=== PATIENT | female | born 1985 | race Caucasian/White ===

== ENCOUNTER → 2016-05-24 | Outpatient (CLI) | payer OTHER ==
[2016-05-28 01:35] LABS: CHLAMYDIA TRACH RNA*** NOT DETECTED (NOT DETECTED); GC (NEIS GONORRHOEAE)RNA** NOT DETECTED (NOT DETECTED)
== END | disposition home or self-care (01) ==
LOC: C.LABSPEC 14:49
PROVIDERS: ATTEND Obstetrics & Gynecology
DX: Z34.81 Encounter for supervision of other normal pregnancy, first trimester (principal)

== ENCOUNTER → 2016-05-24 | Outpatient (CLI) | payer OTHER | END | disposition home or self-care (01) | LOC: C.PAPS 15:04 | PROVIDERS: ATTEND Obstetrics & Gynecology | DX: Z34.81 Encounter for supervision of other normal pregnancy, first trimester (principal) ==

== ENCOUNTER 2023-07-19 14:50 | Inpatient (IN) ==
[2023-07-19 15:46] LABS: Basophils # (auto) 0.04 K/uL (0.00-0.20); Basophils % (auto) 0.9 %; Eosinophils # (auto) 0.04 K/uL (0.00-0.50); Eosinophils % (auto) 0.9 %; Hematocrit (blood only) 31.6 % (37.0-47.0); Hemoglobin 10.5 g/dl (12.0-16.0); Immature Granulocytes # (auto) 0.03 K/uL (0.01-0.20); Immature Granulocytes % (auto) 0.6 %; Lymphocytes % (auto) 21.6 %; Mean Corpuscular Hemoglobin 28.8 pg (25.0-34.0); Mean Corpuscular Hgb Conc 33.2 g/dL (32.0-36.0); Mean Corpuscular Volume 86.8 fL (80.0-100.0); Mean Platelet Volume 10.7 fL (9.4-12.4); Monocytes # (auto) 0.47 K/uL (0.11-0.59); Monocytes % (auto) 10.1 %; Neutrophils # (auto) 3.06 K/uL (1.40-6.50); Neutrophils % (auto) 65.9 %; Platelet Count 156 K/uL (130-400); RDW Coefficient of Variation 12.9 % (11.5-14.5); RDW Standard Deviation 41.1 fL (36.4-46.3); Red Blood Count 3.64 M/uL (4.20-5.40); White Blood Count 4.64 K/ul (4.8-10.8)
[2023-07-19] MEDS: KETOROLAC TROMETHAMINE 15 MG/ML VIAL IV STA (15:53)
[2023-07-19] MEDS: SODIUM CHLORIDE 0.9% 500 ML IV STA (15:53)
[2023-07-19] MEDS: ONDANSETRON INJ 2 MG/ML 2 ML VIAL IV STA (15:53)
[2023-07-19] MEDS: SODIUM CHLORIDE 0.9% 1,000 ML IV SCH (15:55)
[2023-07-19 16:04] LABS: Albumin Globulin Ratio 1.2 (0.9-2); Albumin Level 3.3 gm/dl (3.4-5.0); BUN Creatinine Ratio 14.9 (10-20); Bilirubin,Total 0.8 mg/dl (0.2-1.0); Calcium 8.1 mg/dl (8.6-10.3); Creatinine Clr Calc Pharmacy 135.7 ml/min; Est GFR (African American) 128.3 ml/min; Est GFR (Non-African American) 110.7 ml/min; Globulin 2.8 gm/dl (2.5-4.0); Total Protein 6.1 gm/dl (6.0-8.3)
--- NOTE | 2023-07-19 16:16 | Emergency Department Note ---
History of Present Illness General Chief complaint: Kidney Stone Stated complaint: KIDNEY STONES, FEVER Time Seen by Provider: 07/19/23 15:47 History of Present Illness Maximum Pain Intensity: 8 Patient is a 38-year-old female with past medical history significant for anxiety and depression, history of gastric sleeve surgery in the past who presents to the emergency department for evaluation of right flank pain. Her symptoms started acutely about 5 days ago. She was on vacation in [place] at the time. She states that she was laying on the floor in the hotel with severe right flank pain, nausea and dry heaves. She has never had pain like this previously. She was seen at an emergency department locally and diagnosed with kidney stones. She reports that they were "multiple stones" on the right side, but they were reportedly 1 mm in size-she was told that she will be able to pass them on her own. She was discharged with Toradol, Flomax and Zofran. She states that the the following day she started running fevers. She states that her temperatures were getting as high as 102 F. She was taking Tylenol 1000 mg every 4 hours. She reports continued chills and sweats and dry heaves. Her flank pain has persisted. She was not provided a urine strainer, was not able to confirm whether she was passing any stones/debris. She is voiding but she does not feel like she is emptying her bladder completely. She reports that she just returned to [place] around 0500 this morning, and after trying to get in touch with her primary care provider and came to the ER at their recommendation. She does not have a prior history of kidney stones. Menses are irregular. Home Medications Medication Instructions Recorded Confirmed Type lorazepam 1 mg tablet (Ativan) 1 mg PO BID PRN Anxiety 12/01/22 07/19/23 History tamsulosin 0.4 mg capsule 0.4 mg PO DAILY 07/19/23 07/19/23 History venlafaxine 37.5 mg 37.5 mg PO DAILY 07/19/23 07/19/23 History capsule,extended release 24 hr Allergies Allergy/AdvReac Type Severity Reaction Status Date / Time No Known Allergies Allergy Verified 07/19/23 16:57 Past Med/Surg History Medical History Anxiety and depression Obesity Surgical History H/O left cataract extraction Hx of knee surgery History of gastric surgery Gastric Sleeve Social History Smoking Status: Never smoker Tobacco Type: E-cigarettes / Vaping Preferred Language: Vincentian Feels Safe at Home: Yes Review of Systems A total of 10 systems reviewed and were otherwise negative Physical Exam Vital Signs Vital Signs - 24 hr 07/19/23 14:56 07/19/23 16:06 Temperature 36.9 C Temperature Source Temporal Artery Scan Pulse Rate 111 H 88 Respiratory Rate 18 Respiratory Effort / Characteristics Non-Labored Spontaneous Respiratory Depth Normal Blood Pressure 119/79 Blood Pressure Mean 92 Blood Pressure Position Sitting Pulse Oximetry 97 Oxygen Delivery Method Room Air Sepsis Recent Fever Within 48 Hours No Sepsis New/Unexplained Change in Mental Status N/A Sepsis Action Taken by Nursing No Action Required CONSTITUTIONAL: Patient is an uncomfortable but otherwise well-appearing 38-year-old female who is awake and alert laying on the gurney in no acute distress. Afebrile, mildly tachycardic in triage. Other vital signs are otherwise stable. EYES: Pupils equal, round, reactive to light and accommodation. EOMs intact without nystagmus. Sclera are anicteric. ENT: Tympanic membranes intact, with normal landmarks. External canals are clear. Oral and nasopharynx are clear. Mucous membranes are moist, no lesions, tongue and gums appear normal. CARDIOVASCULAR: Regular rate and rhythm. Peripheral pulses easy to palpable. RESPIRATORY: Breath sounds equal and clear to auscultation. GI: Bowel sounds are present. Abdomen is soft, nontender, nondistended. No guarding or rebound. Positive right-sided CVA tenderness. MUSCULOSKELETAL: Full range of motion of extremities x 4 with good strength. No cyanosis, edema, joint tenderness or swelling. No deformity. INTEGUMENTARY: No lesions or rash, normal skin turgor. Course Course The patient was seen and assessed as above. External medical records were reviewed. She presents to the emergency department for evaluation of continued right flank pain, with now associated fevers. She was diagnosed with kidney stones [id number] about 5 days ago. Critical pathways were implemented from triage including CBC with differential, CMP, urinalysis, IV fluids, Toradol 15 mg and Zofran 4 mg IV. After my assessment of the patient, serum hCG was ordered in addition to more aggressive IV hydration. Blood cultures and lactic acid were obtained as well as a CT scan of the abdomen and pelvis with IV contrast. Diagnostics, as interpreted by me: Laboratory studies: Normal white count 4600. H&H indicate a mild anemia, hemoglobin 10.5, hematocrit 31.6 with normal indices. Potassium low, 3.0, otherwise no significant electrolyte imbalance. No LARISA. No transaminitis. Serum hCG is negative. Lactic acid is normal and not indicative of severe sepsis. Urine microscopy notes leukocyte esterase, greater than 50 WBCs and 4+ bacteria. Imaging studies: CT scan of the abdomen and pelvis with IV contrast notes a 4 mm nonobstructing right distal ureteral stone, right-sided pyelonephrosis and possible right renal abscess. All laboratory and diagnostic studies were discussed with Dr. Pitts attending physician. Patient was discussed with ED case management rn.. After review of the information above and other included data, I feel the patient requires admission for IV antibiotics and urology evaluation/intervention. I did review all of her diagnostic imaging studies and testing with her at length. I did recommend inpatient care and she was agreeable. The patient did report some increased pain and was amenable to something else for discomfort she was given morphine 4 mg IV. I did review the patient with urology on-call, Dr. Ferraro who did not feel that the patient required emergent surgical intervention at this time, but agreed with admission for IV antibiotics and likely surgical intervention tomorrow. Patient was given ceftriaxone 2 g IV after discussion with urology. [facility], for further inpatient care. Differential diagnosis: UTI, pyelonephritis, kidney stone, pyelitis, pyelonephritis, renal abscess, musculoskeletal pain, shingles, hernia, among others. Administered Medications Ondansetron HCl (Ondansetron Inj 2 Mg/Ml 2 Ml Vial) 4 mg IV Q4H PRN PRN Reason: Nausea Stop: 08/18/23 18:06 Last Admin: 07/19/23 19:14 Dose: 4 mg Documented By: SACHA Discontinued Medications Sodium Chloride (Nss) 500 mls @ 999 mls/hr IV .Q31M STA Stop: 07/19/23 15:30 Last Infusion: 07/19/23 18:52 Dose: Infused Documented By: Admin: 07/19/23 15:53 Dose: 999 mls/hr Documented By: SACHA Sodium Chloride (Nss) 1,000 mls @ 999 mls/hr IV .Q1H1M NAZARIO Stop: 07/19/23 17:51 Last Infusion: 07/19/23 18:52 Dose: Infused Documented By: Admin: 07/19/23 15:55 Dose: 999 mls/hr Documented By: Infusion: 07/19/23 15:55 Dose: Infused Documented By: Admin: 07/19/23 15:55 Dose: 999 mls/hr Documented By: SACHA Ceftriaxone Sodium (Rocephin) 2,000 mg in 50 mls @ 100 mls/hr IV NOW STA Stop: 07/19/23 18:17 Last Infusion: 07/19/23 18:52 Dose: Infused Documented By: Admin: 07/19/23 18:07 Dose: 100 mls/hr Documented By: SACHA Ioversol (Optiray 320 100ml) 92 ml IV ONCE ONE Stop: 07/19/23 16:39 Last Admin: 07/19/23 16:39 Dose: 92 ml Documented By: APRYL Ketorolac Tromethamine (Ketorolac Tromethamine 15 Mg/Ml Vial) 15 mg IV ONE STA Stop: 07/19/23 15:01 Last Admin: 07/19/23 15:53 Dose: 15 mg Documented By: SACHA Morphine Sulfate (Morphine Sulfate 4 Mg/Ml 1 Ml Carp\\Vial) 4 mg IV NOW STA Stop: 07/19/23 17:58 Last Admin: 07/19/23 18:07 Dose: 4 mg Documented By: SACHA Ondansetron HCl (Ondansetron Inj 2 Mg/Ml 2 Ml Vial) 4 mg IV NOW STA Stop: 07/19/23 15:01 Last Admin: 07/19/23 15:53 Dose: 4 mg Documented By: SACHA Ondansetron HCl (Ondansetron Inj 2 Mg/Ml 2 Ml Vial) Confirm Administered Dose 4 mg .ROUTE .STK-MED ONE Stop: 07/19/23 18:16 Last Admin: 07/19/23 19:16 Dose: Not Given Documented By: SACHA Medical Decision Making Differential Diagnosis See ED course. Medical Records Attestation: I reviewed the patient's medical records. Home Medications Current Medication List: was personally reviewed by me Laboratory Data Attestation: I reviewed the patient's lab results. 07/19/23 15:27 07/19/23 15:27 Lab Results 07/19/23 07/19/23 07/19/23 Range/Units 15:27 18:01 18:22 WBC 4.64 L (4.8-10.8) K/ul RBC 3.64 L (4.20-5.40) M/uL Hgb 10.5 L (12.0-16.0) g/dl Hct 31.6 L (37.0-47.0) % MCV 86.8 (80.0-100.0) fL MCH 28.8 (25.0-34.0) pg MCHC 33.2 (32.0-36.0) g/dL RDW Std Deviation 41.1 (36.4-46.3) fL RDW Coeff of Emigdio 12.9 (11.5-14.5) % Plt Count 156 (130-400) K/uL MPV 10.7 (9.4-12.4) fL Immature Gran % (Auto) 0.6 % Neut % (Auto) 65.9 % Lymph % (Auto) 21.6 % Dickey % (Auto) 10.1 % Eos % (Auto) 0.9 % Baso % (Auto) 0.9 % Neut # (Auto) 3.06 (1.40-6.50) K/uL Lymph # (Auto) 1.00 L (1.20-3.40) K/uL Dickey # (Auto) 0.47 (0.11-0.59) K/uL Eos # (Auto) 0.04 (0.00-0.50) K/uL Baso # (Auto) 0.04 (0.00-0.20) K/uL Immature Gran # (Auto) 0.03 (0.01-0.20) K/uL Sodium 139 (136-145) mmol/L Potassium 3.0 L (3.5-5.1) mmol/L Chloride 106 (98-107) mmol/L Carbon Dioxide 25 (21-32) mmol/L Anion Gap 8 (3-11) BUN 10 (6-23) mg/dl Creatinine 0.67 (0.6-1.2) mg/dl Est Cr Clr Drug Dosing 135.7 ml/min Est GFR ( Amer) 128.3 ml/min Est GFR (Non-Af Amer) 110.7 ml/min BUN/Creatinine Ratio 14.9 (10-20) Glucose 125 H (70-99(Fasting)) mg/dl Lactate (0.4-2.0) mmol/L Calcium 8.1 L (8.6-10.3) mg/dl Total Bilirubin 0.8 (0.2-1.0) mg/dl AST 25 (13-39) U/L ALT 35 (7-52) U/L Alkaline Phosphatase 175 H (34-104) U/L Total Protein 6.1 (6.0-8.3) gm/dl Albumin 3.3 L (3.4-5.0) gm/dl Globulin 2.8 (2.5-4.0) gm/dl Albumin/Globulin Ratio 1.2 (0.9-2) HCG, Qual Negative (Negative) Urine Color Yellow Urine Appearance Clear (Clear) Urine pH 6.5 (4.5-7.5) Ur Specific [place] > 1.045 H (1.000-1.030) Urine Protein Trace H (Negative) POC Urine Protein Trace H (Negative) Urine Glucose (UA) Negative (Negative) POC Ur Glucose (UA) Normal (Normal) Urine Ketones Negative (Negative) POC Urine Ketones Negative (Negative) Urine Blood Trace H (Negative) POC Urine Blood 50 H (Negative) Urine Nitrite Negative (Negative) POC Urine Nitrite Negative (Negative) Urine Bilirubin Negative (Negative) POC Urine Bilirubin 1+ H (Negative) Urine Urobilinogen Positive H (Negative) POC Urine Urobilinogen 1 H (Normal) Ur Leukocyte Esterase 2+ H (Negative) POC U Leukocyte Esteras 2+ H (Negative) Urine WBC (Auto) >50 H (0-5) /hpf Urine RBC (Auto) 3-5 H (0-2) /hpf U Hyaline Cast (Auto) 0-2 (0-2) /lpf U Epithel Cells (Auto) 0-2 (0-2) /hpf Urine Bacteria (Auto) 4+ H (None Seen) POC Ur Test NEG (NEG) 07/19/23 Range/Units Unknown WBC (4.8-10.8) K/ul RBC (4.20-5.40) M/uL Hgb (12.0-16.0) g/dl Hct (37.0-47.0) % MCV (80.0-100.0) fL MCH (25.0-34.0) pg MCHC (32.0-36.0) g/dL RDW Std Deviation (36.4-46.3) fL RDW Coeff of Emigdio (11.5-14.5) % Plt Count (130-400) K/uL MPV (9.4-12.4) fL Immature Gran % (Auto) % Neut % (Auto) % Lymph % (Auto) % Dickey % (Auto) % Eos % (Auto) % Baso % (Auto) % Neut # (Auto) (1.40-6.50) K/uL Lymph # (Auto) (1.20-3.40) K/uL Dickey # (Auto) (0.11-0.59) K/uL Eos # (Auto) (0.00-0.50) K/uL Baso # (Auto) (0.00-0.20) K/uL Immature Gran # (Auto) (0.01-0.20) K/uL Sodium (136-145) mmol/L Potassium (3.5-5.1) mmol/L Chloride (98-107) mmol/L Carbon Dioxide (21-32) mmol/L Anion Gap (3-11) BUN (6-23) mg/dl Creatinine (0.6-1.2) mg/dl Est Cr Clr Drug Dosing ml/min Est GFR ( Amer) ml/min Est GFR (Non-Af Amer) ml/min BUN/Creatinine Ratio (10-20) Glucose (70-99(Fasting)) mg/dl Lactate 0.5 (0.4-2.0) mmol/L Calcium (8.6-10.3) mg/dl Total Bilirubin (0.2-1.0) mg/dl AST (13-39) U/L ALT (7-52) U/L Alkaline Phosphatase (34-104) U/L Total Protein (6.0-8.3) gm/dl Albumin (3.4-5.0) gm/dl Globulin (2.5-4.0) gm/dl Albumin/Globulin Ratio (0.9-2) HCG, Qual (Negative) Urine Color Urine Appearance (Clear) Urine pH (4.5-7.5) Ur Specific [place] (1.000-1.030) Urine Protein (Negative) POC Urine Protein (Negative) Urine Glucose (UA) (Negative) POC Ur Glucose (UA) (Normal) Urine Ketones (Negative) POC Urine Ketones (Negative) Urine Blood (Negative) POC Urine Blood (Negative) Urine Nitrite (Negative) POC Urine Nitrite (Negative) Urine Bilirubin (Negative) POC Urine Bilirubin (Negative) Urine Urobilinogen (Negative) POC Urine Urobilinogen (Normal) Ur Leukocyte Esterase (Negative) POC U Leukocyte Esteras (Negative) Urine WBC (Auto) (0-5) /hpf Urine RBC (Auto) (0-2) /hpf U Hyaline Cast (Auto) (0-2) /lpf U Epithel Cells (Auto) (0-2) /hpf Urine Bacteria (Auto) (None Seen) POC Ur Test (NEG) Imaging Data Attestation: I personally reviewed and interpreted this imaging study as follows: Radiologist's Impression: Abdomen/Pelvis CT 07/19/23 15:[address] WITH IV CONTRAST CT DOSE: 1436.87 mGy.cm HISTORY: R FLANK PAIN, FEVERS, DX WITH STONES 5 DAYS AGO TECHNIQUE: Multiaxial CT images of the abdomen and pelvis were performed following the use of intravenous contrast. A dose lowering technique was utilized adhering to the principles of ALARA. COMPARISON STUDY: Abdomen and pelvis CT 11/25/2022. FINDINGS: There are trace bilateral pleural effusions. No pneumoperitoneum. No pneumatosis. No acute fractures. Postoperative changes consistent with prior gastric sleeve procedure. The liver, gallbladder, pancreas, and adrenal glands unremarkable. The spleen is enlarged measuring 15 cm in length. This is similar to the prior study. The main portal vein is patent. Normal caliber abdominal aorta. No retroperitoneal or pelvic lymphadenopathy. No pelvic free fluid. The bladder, uterus, bilateral adnexa are unremarkable. A few colonic diverticula. No evidence for acute diverticulitis. No bowel wall thickening or obstruction. Normal appendix. Normal left kidney. No left-sided hydronephrosis. There is a 4 mm stone within the distal right ureter best seen on image 335. This is 2 cm proximal to the right ureterovesical junction. However, there is no right-sided hydronephrosis. There is heterogeneous enhancement within the right kidney with mild right perinephric edema/fat stranding. This is concerning for a right-sided pyelonephritis. There are few small foci of heterogeneous enhancement within the upper pole of the right kidney with the largest on image 117 measuring 16 mm. These are concerning for small foci of phlegmon/developing abscess. IMPRESSION: 1. A 4 mm nonobstructing stone within the distal right ureter. 2. Heterogeneous enhancement within the right kidney with mild perinephric fat stranding. This is concerning for right-sided pyelonephritis. 3. There are also a few small foci of heterogenous enhancement within the upper pole the right kidney as described above. These are concerning for small foci of phlegmon/developing abscess. 4. Trace bilateral pleural effusions. 5. Splenomegaly, unchanged. ACT 112: Negative or not required by law. Electronically signed by: Jorge Luis Duenas M.D. 07/19/2023 4:58 PM MDM Narrative See ED course. Impression & Plan Pyelonephritis of right kidney, Renal abscess, right, Right distal ureteral calculus Discharge Plan Visit Data Chief Complaint: Kidney Stone Stated Complaint: KIDNEY STONES, FEVER ED Provider: Jermain Pitts ED Midlevel Provider: Thierno Oneal Discharge Problem: Pyelonephritis of right kidney, Renal abscess, right, Right distal ureteral calculus Patient Disposition: Admitted As Inpatient Forms Stand Alone Forms: [facility] Prescriptions Prescriptions: No Action lorazepam [Ativan] 1 mg Tablet 1 mg PO BID PRN (Reason: Anxiety) venlafaxine 37.5 mg capsule,extended release 24hr 37.5 mg PO DAILY tamsulosin 0.4 mg capsule 0.4 mg PO DAILY Referrals Referrals: Justin Aranda MD [Primary Care Provider] -
[2023-07-19 16:27] LABS: Pregnancy Test, Serum Negative (Negative)
[2023-07-19] MEDS: OPTIRAY 320 100ml IV ONE (16:39)
--- NOTE | 2023-07-19 17:00 | CT Scan Report ---
ABDOMEN AND PELVIS CT WITH IV CONTRAST CT DOSE: 1436.87 mGy.cm HISTORY: R FLANK PAIN, FEVERS, DX WITH STONES 5 DAYS AGO TECHNIQUE: Multiaxial CT images of the abdomen and pelvis were performed following the use of intrave nous contrast. A dose lowering technique was utilized adhering to the principles of ALARA. COMPARISON STUDY: Abdomen and pelvis CT 11/25/2022. FINDINGS: There are trace bilateral pleural effusions. No pneumoperitoneum. No pneumatosis. No acute fractures. Postoperative changes consistent with prior gastric sleeve procedure. The liver, gallbladd er, pancreas, and adrenal glands unremarkable. The spleen is enlarged measuring 15 cm in length. This is similar to the prior study. The main portal vein is patent. Normal caliber abdominal aorta. No re troperitoneal or pelvic lymphadenopathy. No pelvic free fluid. The bladder, uterus, bilateral adnexa are unremarkable. A few colonic diverticula. No evidence for acute diverticulitis. No bowel wall thic kening or obstruction. Normal appendix. Normal left kidney. No left-sided hydronephrosis. There is a 4 mm stone within the distal right ureter best seen on image 335. This is 2 cm proximal to the right ureterovesical junction. However, there is no right-sided hydronephrosis. There is heterogeneous enha ncement within the right kidney with mild right perinephric edema/fat stranding. This is concerning f or a right-sided pyelonephritis. There are few small foci of heterogeneous enhancement within the upp er pole of the right kidney with the largest on image 117 measuring 16 mm. These are concerning for s mall foci of phlegmon/developing abscess. IMPRESSION: 1. A 4 mm nonobstructing stone within the distal right ureter. 2. Heterogeneous enhancement within the right kidney with mild perinephric fat stranding. This is con cerning for right-sided pyelonephritis. 3. There are also a few small foci of heterogenous enhancement within the upper pole the right kidney as described above. These are concerning for small foci of phlegmon/developing abscess. 4. Trace bilateral pleural effusions. 5. Splenomegaly, unchanged. ACT 112: Negative or not required by law. Electronically signed by: Jorge Luis Duenas M.D. 07/19/2023 4:58 PM
[2023-07-19] MEDS: MoRPHine SULFATE 4 MG/ML 1 ML CARP\\VIAL IV STA (18:07)
[2023-07-19] MEDS: cefTRIAXone SODIUM 2,000 MG/50 ML BAG IV STA (18:07)
[2023-07-19 18:37] LABS: POC Urine Bilirubin 1+ (Negative); POC Urine Blood 50 (Negative); POC Urine Glucose Normal (Normal); POC Urine Ketones Negative (Negative); POC Urine Leukocytes 2+ (Negative); POC Urine Nitrite Negative (Negative); POC Urine Protein Trace (Negative); POC Urine Urobilinogen 1 (Normal)
[2023-07-19 18:46] LABS: Appearance Urine Clear (Clear); Bacteria Urine Automated 4+ (None Seen); Bilirubin Urine Negative (Negative); Blood Urine Trace (Negative); Cast Urine Automated 0-2 /lpf (0-2); Color Urine Yellow; Epithelial Cell Urine Auto 0-2 /hpf (0-2); Glucose Urine UA Negative (Negative); Ketones Urine Negative (Negative); Leukocyte Esterase Urine 2+ (Negative); Nitrite Urine Negative (Negative); Protein Urine Trace (Negative); Specific Gravity Urine > 1.045 (1.000-1.030); Urobilinogen Urine Positive (Negative); WBC Urine Automated >50 /hpf (0-5); pH Urine 6.5 (4.5-7.5)
--- NOTE | 2023-07-19 18:49 | History & Physical Report ---
Date of Service July 19, 2023 Assessment & Plan (1) Pyelonephritis: Plan: Assessment: 1. Acute pyelonephritis with what appears to be a perinephric abscess early formation and distal right ureter stone. N.p.o., IV fluids, IV Rocephin, urological consultation-Dr. Ferraro. Strain urine. Blood cultures already obtained. Oral Flomax ordered. 2. History of anxiety/depression stable continue home medications. 3. Obesity status post gastric sleeve approximate 4 to 5 years ago. 4. Anemia. Appears somewhat chronic mildly worse compared to usual possibly from IV fluids other ER.?. Will obtain repeat CBC in the morning as well as iron studies I suspect her anemia is chronic for malabsorption due to her gastric sleeve. Plan: As described above. Please refer to orders for further planning. History of Present Illness Chief Complaint: Flank pain. Diagnosed kidney stone approximate 4 to 5 days ago in [facility]. Primary Care Provider: Justin Aranda MD This is a pleasant 38-year-old female who is vacationing in the [facility]. She developed flank pain approximately 4 to 5 days ago. Her took her to the local ER. She was diagnosed with a kidney stone at that time. She just returned to [facility] today and presented the ER for further evaluation and treatment with fever and flank pain. CAT scan demonstrated a developing right-sided renal abscess with pyelonephritis with a distal right ureter stone. Blood cultures were obtained the patient was given IV Rocephin. Repeat CAT scan was performed and resulted as described above. Consultation obtained with Dr. Ferraro for urology the patient is hemodynamically stable in the ER the plan is for OR in the morning unless the patient decompensates then OR would need to be done more urgently. Allergies Allergy/AdvReac Type Severity Reaction Status Date / Time No Known Allergies Allergy Verified 07/19/23 16:57 Home Medications Medication Instructions Recorded Confirmed Type lorazepam 1 mg tablet (Ativan) 1 mg PO BID PRN Anxiety 12/01/22 07/19/23 History tamsulosin 0.4 mg capsule 0.4 mg PO DAILY 07/19/23 07/19/23 History venlafaxine 37.5 mg 37.5 mg PO DAILY 07/19/23 07/19/23 History capsule,extended release 24 hr Past Med/Surg History Medical History Anxiety and depression Obesity Surgical History H/O left cataract extraction Hx of knee surgery History of gastric surgery Gastric Sleeve Social History Smoking Status: Never smoker Tobacco Type: E-cigarettes / Vaping Preferred Language: Gibraltarian Feels Safe at Home: Yes Review of Systems Review of Systems: A 10 point review of system was obtained and unless otherwise stated here or in history of present illness are negative and noncontributory to chief complaint. Physical Exam Physical Exam: In General: In general pleasant 38-year-old female is alert and oriented x 3 at the time of my exam she interacts appropriate and pleasantly she is now pain- free with the morphine and Zofran delivered in the ER. HEENT: Normocephalic atraumatic pupils are equal round and reactive to light bilaterally. No scleral icterus no conjunctival injection septum is in the midline nose is without discharge oral mucosa is pink and moist without lesion. NECK: Supple no rigidity no lymphadenopathy no thyromegaly no carotid bruits no JVD no masses. HEART: Regular rate and rhythm I do not appreciate any ectopy or rub. No murmur. LUNGS: Clear to auscultation bilaterally and anteriorly with no evidence of adventitious sounds/wheezes rales or rhonchi. ABDOMEN: Soft nontender, no rebound, no peritoneal signs, positive bowel sounds, no appreciable organomegaly. EXTREMITIES: Intact, no peripheral cyanosis, clubbing or edema. Strength is 5 out of 5 in extremities x4, no pathological reflexes. NEUROLOGICAL: Cranial nerves II through XII are grossly intact with no focal deficit elicited upon examination. No tremor. Results & Data Results & Data Vital Signs (Past 12 Hours) Vital Signs Temp Pulse Resp BP Pulse Ox O2 Del Method 07/19/23 16:06 88 07/19/23 14:56 36.9 C 111 H 18 119/79 97 Room Air Code Status & VTE Plan Code Status Full code I personally discussed with patient this evening VTE Prophylaxis Plan VTE Prophylaxis will be ordered: Yes PG Care Time/CCT Total # of Minutes Spent Total Time Spent with Patient: Total time spent is greater than 50% in coordination of care (as documented) at patient's floor/unit and/or counseling patient: Coding Level of Care Code 39672 INT INP/OBS CARE MIN Diagnoses Pyelonephritis N12
[2023-07-19] MEDS: ONDANSETRON INJ 2 MG/ML 2 ML VIAL IV PRN (19:14)
[2023-07-19] MEDS: ONDANSETRON INJ 2 MG/ML 2 ML VIAL ONE (19:16)
[2023-07-19] MEDS: LACTATED RINGER'S 1,000 ML IV SCH (20:12)
[2023-07-19] MEDS: ACETAMINOPHEN 1,000 MG/100 ML VIAL IV PRN (22:25)
[2023-07-19] MEDS: MoRPHine SULFATE 2 MG/ML CARP IV PRN (22:36)
[2023-07-20] MEDS: HYDROmorphone INJ 0.5 MG/0.5 ML SYR IV STA (05:56)
[2023-07-20] MEDS: POTASSIUM CHLORIDE / WTR 10 MEQ/100 ML PLCT IV ONE (06:43)
[2023-07-20 07:25] LABS: Basophils # (auto) 0.03 K/uL (0.00-0.20); Basophils % (auto) 0.7 %; Eosinophils # (auto) 0.02 K/uL (0.00-0.50); Eosinophils % (auto) 0.5 %; Hematocrit (blood only) 26.9 % (37.0-47.0); Hemoglobin 8.9 g/dl (12.0-16.0); Immature Granulocytes # (auto) 0.02 K/uL (0.01-0.20); Immature Granulocytes % (auto) 0.5 %; Lymphocytes # (auto) 0.93 K/uL (1.20-3.40); Mean Corpuscular Hemoglobin 28.7 pg (25.0-34.0); Mean Corpuscular Hgb Conc 33.1 g/dL (32.0-36.0); Mean Corpuscular Volume 86.8 fL (80.0-100.0); Mean Platelet Volume 10.4 fL (9.4-12.4); Monocytes # (auto) 0.46 K/uL (0.11-0.59); Monocytes % (auto) 10.9 %; Neutrophils # (auto) 2.77 K/uL (1.40-6.50); Neutrophils % (auto) 65.4 %; Platelet Count 127 K/uL (130-400); RDW Coefficient of Variation 13.3 % (11.5-14.5); RDW Standard Deviation 42.5 fL (36.4-46.3); White Blood Count 4.23 K/ul (4.8-10.8)
[2023-07-20] MEDS ORDERED: HYDROmorphone INJ 0.5 MG/0.5 ML SYR IV PRN (07:35)
[2023-07-20 07:36] LABS: Albumin Level 2.9 gm/dl (3.4-5.0); Bilirubin,Total 0.6 mg/dl (0.2-1.0); Calcium 7.6 mg/dl (8.6-10.3); Magnesium 1.7 mg/dl (1.7-2.4); Potassium 3.4 mmol/L (3.5-5.1)
[2023-07-20 07:42] LABS: Albumin Globulin Ratio 1.2 (0.9-2); BUN Creatinine Ratio 8.7 (10-20); Est GFR (African American) 127.1 ml/min; Est GFR (Non-African American) 109.7 ml/min; Globulin 2.4 gm/dl (2.5-4.0); Total Protein 5.3 gm/dl (6.0-8.3)
--- NOTE | 2023-07-20 07:51 | Hospitalist Progress Note ---
Date of Service July 20, 2023 Assessment & Plan (1) Pyelonephritis: Plan: Sepsis due to right sided pyelonephritis present on admission. Early right upper pole small foci of phlegmon/abscess, largest is 16mm. Distal R ureteral stone - 4 mm -consulted urology - R ureteral stent placed today - follow up with urology -changed IV morphine to IV hydromorphone (nausea) -added IV compazine -continue IV ceftriaxone, urine with GNRs and blood Cx - P. minimum 2 weeks of antibiotics -continue flomax Plan Pancytopenia - possibly WBC and platelets low because of acute infection, Hg low related to LATESHA. Follow CBC. If not normalized after treatment of infection and LATESHA, further testing is warranted. Has lymphopenia. Iron deficiency anemia - has hx gastric sleeve - discussed iron replacement po after acute symtoms resolve. She plans to see GI soon - overdue for colon cancer screening (brother had at young age) and has increased heartburn -B12 was normal Hypokalemia - 3.0 in ED replaced, 3.4 this am additional 10 meq IV ordered, AM BMP Acute migraine - added IV compazine, IV depakote 500 mg x 1 - resolved History of anxiety/depression stable continue home medications. Obesity status post gastric sleeve approximate 4 to 5 years ago. DVT ppx - start enoxaparin Admission and Anticipated Discharge Date Admission Date: July 19, 2023 Subjective migraine and uncontrolled nausea this am, did not respond to IV zofran resolved after IV compazine and IV VPA still having sweats but no stone/flank pain, mild flank pain from stent with voiding Physical Exam 2 Physical Exam: PHYSICAL EXAMINATION Last 24h vital signs reviewed, see documentation in flowsheet General: comfortable appearing, no distress, sitting up in bed. mildly diaphroretic HEENT: Normocephalic, atraumatic, pupils round and equal, sclerae anicteric, no conjunctival injection, moist mucus membranes Lungs: Normal respiratory effort. Clear to auscultation bilaterally. No RRW Heart: Regular rate and rhythm, no murmurs. No JVD Abdomen: Soft, nontender, nondistended. Bowel sounds present. Extremities: Warm, dry, well-perfused. No extremity edema. Neuro: Alert and oriented x 4, face symmetric, moves 4 extremities well Psych: Normal affect and behavior Results & Data Results & Data Vital Signs (Past 12 Hours) Vital Signs Temp Pulse Pulse Resp BP BP Pulse Ox 07/20/23 07:16 90 07/20/23 03:53 36.7 C 93 H 18 114/77 97 07/20/23 03:53 104 H 07/20/23 02:31 07/20/23 00:18 38 C H 07/19/23 21:30 101 H 07/19/23 21:20 37.8 C H 102 H 18 127/74 20 L 07/19/23 20:05 84 20 114/77 O2 Del Method 07/20/23 07:16 07/20/23 03:53 Room Air 07/20/23 03:53 07/20/23 02:31 Room Air 07/20/23 00:18 07/19/23 21:30 07/19/23 21:20 Room Air 07/19/23 20:05 Laboratory Results 07/20/23 07:04 07/20/23 07:04 PG Care Time/CCT Total # of Minutes Spent Total Time Spent with Patient: Total time spent is greater than 50% in coordination of care (as documented) at patient's floor/unit and/or counseling patient: Coding Level of Care Code 61633 SUB INP/OBS CARE 3/50MIN Diagnoses Pyelonephritis N12
[2023-07-20] MEDS: VENLAFAXINE HCL XR 37.5 MG CAPXR PO SCH (08:03)
[2023-07-20] MEDS: TAMSULOSIN HCL 0.4 MG CAP PO SCH ×2 (08:03)
[2023-07-20] MEDS: PROCHLORPERAZINE 5 MG in SYRINGE 4 ML IV PRN (08:03)
--- NOTE | 2023-07-20 08:28 | Urology Consultation ---
Date of Consultation July 20, 2023 Assessment & Plan (1) Right distal ureteral calculus: (2) Pyelonephritis of right kidney: Plan We reviewed her CT results, specifically the distal right ureteral stone, concern for right-sided pyelonephrosis, and possible small foci of phlegmon /developing abscess. Given her clinical picture concerning for infection and the ureteral stone, we discussed our recommendation would be to proceed with right ureteral stent placement. Ureteral stents were discussed as well as postoperative issues and pain management. She is aware a second procedure may be needed for stone treatment. Risks and benefits of the procedure were reviewed. All questions were answered. She is agreeable to proceeding. Will plan to proceed to the OR today for cystoscopy, right retrograde pyelogram, right ureteral stent placement with Dr. Ellis. OR notified. Risks and benefits to be reviewed with patient by Dr. Ellis. She is covered with scheduled IV ceftriaxone. Keep NPO. Continue supportive care. Urology will follow. Supervising Physician Co-Signing Physician Notes Discussed patient with SINDHU. Agree with plan. Reviewed CT scan which does show a stone in the distal right ureter. Her urinalysis is positive and she has findings that could possibly represent an early pyelonephritis. Recommend right stent placement even with current nonobstructing nature of stone. She previously had an outside CT scan and showed us the report on her phone which did have hydronephrosis. History of Present Illness Attending Physician: Estela Myers MD History of Present Illness 38 year old female who presented to [facility] ED on 07/19/2023 with right flank pain. She reports symptoms started 5 days ago while on vacation in [place]. She was seen in the ED there and was told she had kidney stones that she would likely pass on her own. Since then she has had ill feelings, fevers, pain, nausea and vomiting. On arrival to the ED she was afebrile and hemodynamically stable. Labs showing a white count of 4.64 and creatinine 0.67. Urinalysis with blood, 2+ LE, 4+ bacteria, negative nitrite. CT abdomen pelvis with a 4 mm nonobstructing distal right ureteral stone, right-sided pyelonephritis, and a few small foci within the right kidney concerning for phlegmon/developing abscess. Urine and blood cultures collected and pending. On ceftriaxone. Admitted to medicine service CT abdomen pelvis- 1. A 4 mm nonobstructing stone within the distal right ureter. 2. Heterogeneous enhancement within the right kidney with mild perinephric fat stranding. This is concerning for right-sided pyelonephritis. 3. There are also a few small foci of heterogenous enhancement within the upper pole the right kidney as described above. These are concerning for small foci of phlegmon/developing abscess. 4. Trace bilateral pleural effusions. 5. Splenomegaly, unchanged. Patient seen at bedside this AM. Awake, resting in bed on arrival. No acute distress. Has been NPO. Still with right-sided pain, nausea, vomiting. Was febrile overnight at 38 C. She does report having a CT while in the ED in [place]. She was told she had stones that would likely pass. Also reports right-sided hydronephrosis was noted on CT imaging report. She denies prior history of kidney stones. Allergies Allergy/AdvReac Type Severity Reaction Status Date / Time No Known Allergies Allergy Verified 07/20/23 09:13 Home Medications Medication Instructions Recorded Confirmed Type lorazepam 1 mg tablet (Ativan) 1 mg PO BID PRN Anxiety 12/01/22 07/19/23 History tamsulosin 0.4 mg capsule 0.4 mg PO DAILY 07/19/23 07/19/23 History venlafaxine 37.5 mg 37.5 mg PO DAILY 07/19/23 07/19/23 History capsule,extended release 24 hr Patient History Medical History (Updated 07/20/23 @ 09:13 by Willie Tran MD) Encounter for pre-operative examination Renal abscess, right Anxiety and depression Obesity Surgical History H/O left cataract extraction Hx of knee surgery History of gastric surgery Gastric Sleeve Social History Smoking Status: Never smoker Tobacco Type: E-cigarettes / Vaping Hx Alcohol Use: No Hx Substance Use: No Preferred Language: Icelandic Communication Ability: Effective Catalyst Supervisor Required: No Beliefs That Will Affect Care: None Current Living Situation: Spouse Feels Safe at Home: Yes Assistive Devices: None Review of Systems Review of Systems: All systems reviewed & are unremarkable except as noted in HPI & below Physical Exam Constitutional: + ill appearing; no acute distress Neck: normal visual inspection Respiratory: no respiratory distress and no labored breathing Musculoskeletal: Head/Neck/Chest: normocephalic Skin: No visible rashes or lesions to exposed skin areas Neurologic: moves all extremities and awake Psychiatric: A+Ox3, euthymic affect Results & Data Vital Signs (Past 12 Hours) Vital Signs Temp Pulse Pulse Resp BP BP Pulse Ox 07/20/23 07:16 90 07/20/23 03:53 36.7 C 93 H 18 114/77 97 07/20/23 03:53 104 H 07/20/23 02:31 07/20/23 00:18 38 C H 07/19/23 21:30 101 H 07/19/23 21:20 37.8 C H 102 H 18 127/74 20 L 07/19/23 20:05 84 20 114/77 O2 Del Method 07/20/23 07:16 07/20/23 03:53 Room Air 07/20/23 03:53 07/20/23 02:31 Room Air 07/20/23 00:18 07/19/23 21:30 07/19/23 21:20 Room Air 07/19/23 20:05 PG Care Time/CCT Total # of Minutes Spent Total Time Spent with Patient: Total time spent is greater than 50% in coordination of care (as documented) at patient's floor/unit and/or counseling patient: Coding Level of Care Code 58064 IN/OBS CONSULT LVL 4,60M Diagnoses Right distal ureteral calculus N20.1 Pyelonephritis of right kidney N12
[2023-07-20] MEDS: VALPROATE SOD 500 MG in DEXTROSE 5% 50 ML IV ONE (08:40)
[2023-07-20] MEDS ORDERED: DEXAMETHASONE SOD INJ 4 MG/ML VIAL ONE (09:03)
[2023-07-20] MEDS ORDERED: ONDANSETRON INJ 2 MG/ML 2 ML VIAL ONE (09:03)
[2023-07-20] MEDS ORDERED: PROPOFOL IV EMULSION 10 MG/ML 20 ML VIAL IV ONE (09:03)
[2023-07-20] MEDS ORDERED: fentaNYL citrate PF 100 MCG/2 ML VIAL ONE (09:03)
[2023-07-20] MEDS ORDERED: MIDAZOLAM HCL 1 MG/ML 2ML VIAL ONE (09:03)
[2023-07-20] MEDS ORDERED: HYDROmorphone INJ 1 MG/ML SYRINGE IV PRN (09:10)
[2023-07-20] MEDS ORDERED: ePHEDrine sulfate 50 MG/ML AMP IV PRN (09:10)
[2023-07-20] MEDS ORDERED: ONDANSETRON INJ 2 MG/ML 2 ML VIAL IV PRN (09:10)
[2023-07-20] MEDS ORDERED: PROMETHAZINE HCL 6.25 MG in SODIUM CHLORIDE 0.9% 50 ML IV PRN (09:10)
[2023-07-20] MEDS ORDERED: fentaNYL citrate PF 100 MCG/2 ML VIAL IV PRN (09:10)
[2023-07-20] MEDS ORDERED: ATROPINE SULFATE 0.1 MG/ML 10ML SYR IV PRN (09:10)
--- NOTE | 2023-07-20 09:12 | Anesthesiology Consultation ---
Date of Service July 20, 2023 Assessment & Plan (1) Encounter for pre-operative examination: Chart Review Chart Review: Acceptable Risk for Surgery and Patient NOT seen in Pre Admission Testing Consults Requested none History Surgery Operation Date: 07/20/23 07:00 Proposed Procedures p Cystoscopy Right Retrograde Pyelogram and Stent Placement - Feng Ellis MD Height/Weight Height: 5 ft 6 in Weight: 103.5 kg Allergies Allergy/AdvReac Type Severity Reaction Status Date / Time No Known Allergies Allergy Verified 07/19/23 16:57 Medications Home Medications Medication Instructions Recorded Confirmed Last Taken lorazepam 1 mg tablet (Ativan) 1 mg PO BID PRN Anxiety 12/01/22 07/19/23 11/30/22 tamsulosin 0.4 mg capsule 0.4 mg PO DAILY 07/19/23 07/19/23 07/19/23 venlafaxine 37.5 mg 37.5 mg PO DAILY 07/19/23 07/19/23 07/19/23 capsule,extended release 24 hr Active Medications Generic Name Dose Route Start Last Admin Trade Name Freq PRN Reason Stop Dose Admin Lactated Ringer's 1,000 mls @ 100 mls/hr 07/19/23 18:15 07/20/23 06:44 Lr IV 07/20/23 14:14 100 mls/hr .Q10H NAZARIO Administration Acetaminophen 1,000 mg in 100 mls @ 400 mls/hr 07/19/23 18:04 07/19/23 23:05 Ofirmev IV 07/22/23 18:03 Infused Q8H PRN Infusion pain(1-4),headache,fever Prochlorperazine 5 mg/ Syringe 5 mls @ 5 mls/min 07/20/23 07:32 07/20/23 08:03 IV 08/19/23 07:31 5 mls/min Q6H PRN Administration Nausea And Vomiting Ondansetron HCl 4 mg 07/19/23 18:07 07/20/23 05:00 Ondansetron Inj 2 Mg/Ml 2 Ml Vial IV 08/18/23 18:06 4 mg Q4H PRN Administration Nausea Tamsulosin HCl 0.4 mg 07/20/23 09:00 07/20/23 08:03 Tamsulosin Hcl 0.4 Mg Cap PO 08/19/23 08:59 Not Given QAM NAZARIO Tamsulosin HCl 0.4 mg 07/20/23 09:00 07/20/23 08:03 Tamsulosin Hcl 0.4 Mg Cap PO 08/19/23 08:59 0.4 mg DAILY NAZARIO Administration Venlafaxine HCl 37.5 mg 07/20/23 09:00 07/20/23 08:03 Venlafaxine Hcl Xr 37.5 Mg Capxr PO 08/19/23 08:59 37.5 mg DAILY NAZARIO Administration Past Medical History Medical History (Updated 07/20/23 @ 09:13 by Willie Tran MD) Encounter for pre-operative examination Renal abscess, right Anxiety and depression Obesity Past Surgical History Surgical History H/O left cataract extraction Hx of knee surgery History of gastric surgery Gastric Sleeve Social History Smoking Status: Never smoker Hx Alcohol Use: No alcohol intake frequency: 0-2 drinks per day Hx Substance Use: No Physical Exam Vital Signs Last Vital Signs Temp 36.7 C 07/20/23 07:57 Pulse 67 07/20/23 07:57 Resp 16 07/20/23 07:57 BP 128/69 07/20/23 07:57 Pulse Ox 93 07/20/23 07:57 O2 Del Method Room Air 07/20/23 07:57 Testing Laboratory Results 07/20/23 07:04 07/20/23 07:04 Urine Color Yellow 07/19/23 18:01 Urine Appearance Clear (Clear) 07/19/23 18:01 Urine pH 6.5 (4.5-7.5) 07/19/23 18:01 Ur Specific [place] > 1.045 (1.000-1.030) H 07/19/23 18:01 Urine Protein Trace (Negative) H 07/19/23 18:01 Urine Glucose (UA) Negative (Negative) 07/19/23 18:01 Urine Ketones Negative (Negative) 07/19/23 18:01 Urine Nitrite Negative (Negative) 07/19/23 18:01 Ur Leukocyte Esterase 2+ (Negative) H 07/19/23 18:01 Urine WBC (Auto) >50 /hpf (0-5) H 07/19/23 18:01 Urine RBC (Auto) 3-5 /hpf (0-2) H 07/19/23 18:01 U Hyaline Cast (Auto) 0-2 /lpf (0-2) 07/19/23 18:01 U Epithel Cells (Auto) 0-2 /hpf (0-2) 07/19/23 18:01 Urine Bacteria (Auto) 4+ (None Seen) H 07/19/23 18:01 07/19/23 18:01 Urine Culture - Preliminary Urine,Clean Catch Gram negative bacilli 07/19/23 18:22 POC Ur Test NEG Electrocardiogram Date: 12/02/23 DICTATED BY: Pramod Shepard MD Test Reason : Blood Pressure : / mmHG Vent. Rate : 087 BPM Atrial Rate : 087 BPM P-R Int : 170 ms QRS Dur : 080 ms QT Int : 348 ms P-R-T Axes : 034 -12 014 degrees QTc Int : 418 ms Normal sinus rhythm Low voltage QRS Poor R wave progression, consider anterior AR vs. lead placement vs. LVH Abnormal ECG No previous ECGs available Confirmed by Pramod Shepard ([id number]) on 12/01/2022 1:33:00 PM
[2023-07-20] MEDS: DIATRIZOATE MEGLUMINE 30% 100ML VIAL INSTIL ONE (10:03)
--- NOTE | 2023-07-20 10:12 | Operative Report ---
PG Post Operative Report Pre & Post Diagnosis Operation Date: 07/20/23 07:00 Pre-Op Diagnosis: Right Pyelnoephritis, Right Ureteral Stone Post-Op Diagnosis: Right Pyelnoephritis, Right Ureteral Stone I identified the patient and participated in the time-out.: Yes Procedure Operation Date: 07/20/23 07:00 Actual Procedures p Cystoscopy Right Retrograde Pyelogram with radiographic interpretation and Stent Placement(Right) - Feng Ellis MD Surgeon Feng Ellis MD Lap Layer None Estimated Blood Loss 0 Findings See Below Mild right hydronephrosis. Stent in appropriate position Specimens None Drains 6 inch x 24 cm right ureteral stent Anesthesia Type MAC Complications none Indications 38-year-old female with a 4 mm right distal ureteral calculus and urinalysis concerning for infection. Findings on CT scan concerning for beginnings of right pyelonephritis Description of Procedure After informed consent was obtained, the patient was transported operative suite. [] anesthesia was induced. The patient was placed in dorsolithotomy position prepped and draped in a sterile fashion. They received preoperative ceftriaxone for antibiotic prophylaxis. An appropriate surgical timeout was performed. A 19.5 Sammarinese rigid scope was inserted per urethra into the bladder. Layne cystoscopy revealed no stones or lesions. I turned my attention the right ureteral orifice and intubated this with a 5 Sammarinese open-ended catheter. A right retrograde pyelogram was shot which showed mild hydronephrosis. A sensor wire was advanced into the kidney and confirmed fluoroscopically. A 6 Sammarinese by 24 cm right ureteral stent was deployed with a good proximal coil in the renal pelvis and a good distal coil noted in the bladder, confirmed fluoroscopically a nd under direct visualization, respectively. The bladder was emptied and the scope was removed. This concluded the end of the case. All counts were correct at the end of the case. I was present, scrubbed, and actively participated for the entirety of the procedure. I attest to the content of the Intraoperative Record and any orders documented therein. Any exceptions are noted below.
--- NOTE | 2023-07-20 10:21 | Anesthesiology Progress Note ---
Date of Service July 20, 2023 Anesthesia Post Procedure Vital Signs Vital Signs: Temp Pulse Pulse Pulse Resp BP BP 07/20/23 10:12 36.2 C L 82 22 105/67 07/20/23 09:18 37.1 C 77 20 112/70 07/20/23 07:57 36.7 C 67 16 128/69 07/20/23 07:16 90 07/20/23 03:53 36.7 C 93 H 18 114/77 07/20/23 03:53 104 H 07/20/23 02:31 07/20/23 00:18 38 C H 07/19/23 21:30 101 H 07/19/23 21:20 37.8 C H 102 H 18 127/74 07/19/23 20:05 84 20 114/77 07/19/23 18:07 74 16 120/85 07/19/23 17:02 83 21 109/71 07/19/23 16:06 88 07/19/23 16:02 87 19 113/82 07/19/23 14:56 36.9 C 111 H 18 119/79 Pulse Ox O2 Del Method 07/20/23 10:12 94 Room Air 07/20/23 09:18 96 Room Air 07/20/23 07:57 93 Room Air 07/20/23 07:16 07/20/23 03:53 97 Room Air 07/20/23 03:53 07/20/23 02:31 Room Air 07/20/23 00:18 07/19/23 21:30 07/19/23 21:20 20 L Room Air 07/19/23 20:05 07/19/23 18:07 96 Room Air 07/19/23 17:02 95 Room Air 07/19/23 16:06 07/19/23 16:02 97 Room Air 07/19/23 14:56 97 Room Air Pain Intensity Head: Pain Intensity: 4 Transfer of Care Handoff Completed per policy Notes Mental Status: alert / awake / arousable and participated in evaluation Patient Amnestic to Procedure: Yes Nausea / Vomiting: adequately controlled Pain: adequately controlled Airway Patency, RR, SpO2: stable & adequate BP & HR: stable & adequate Hydration State: stable & adequate Anesthetic Complications: no major complications apparent and Pt Satisfied with anesthetic care
--- NOTE | 2023-07-20 11:20 | Fluoroscopy Report ---
FL retrograde includes kub CLINICAL HISTORY: RT SIDE CYSTO STENT COMPARISON STUDY: None. FLUOROSCOPY TIME: 9.5 FLUOROSCOPY IMAGES: 2 Ka,r: 2.7 mGy FINDINGS: Retrograde opacification of the right renal collecting system followed by placement of a ri ght ureteral stent. Only proximal portion of the stent is identified and appears in good position. IMPRESSION: ACT 112: Negative or not required by law. Electronically signed by: Jorge Luis Duenas M.D. 07/20/2023 11:19 AM
[2023-07-20] MEDS: cefTRIAXone SODIUM 2,000 MG/50 ML BAG IV SCH (17:11)
[2023-07-20] MEDS: LORazepam 1 MG TAB PO PRN (23:10)
[2023-07-20] MEDS: PHENAZOPYRIDINE HCL 200 MG TAB PO STA (23:10)
[2023-07-20] MEDS: ACETAMINOPHEN 500 MG TAB PO ONE (23:10)
[2023-07-21 07:44] LABS: Hematocrit (blood only) 30.6 % (37.0-47.0); Hemoglobin 10.1 g/dl (12.0-16.0); Mean Corpuscular Hemoglobin 29.2 pg (25.0-34.0); Mean Corpuscular Volume 88.4 fL (80.0-100.0); Mean Platelet Volume 10.8 fL (9.4-12.4); Platelet Count 198 K/uL (130-400); RDW Standard Deviation 42.1 fL (36.4-46.3); Red Blood Count 3.46 M/uL (4.20-5.40); White Blood Count 5.85 K/ul (4.8-10.8)
[2023-07-21 07:55] LABS: BUN Creatinine Ratio 11.1 (10-20); C Reactive Protein 14.41 mg/dl (0-0.5); Calcium 8.6 mg/dl (8.6-10.3); Creatinine Clr Calc Pharmacy 145.7 ml/min; Potassium 3.6 mmol/L (3.5-5.1)
[2023-07-21 08:20] LABS: Basophils # (auto) 0.04 K/uL (0.00-0.20); Basophils % (auto) 0.7 %; Eosinophils # (auto) 0.01 K/uL (0.00-0.50); Eosinophils % (auto) 0.2 %; Immature Granulocytes # (auto) 0.06 K/uL (0.01-0.20); Lymphocytes # (auto) 1.71 K/uL (1.20-3.40); Lymphocytes % (auto) 29.2 %; Monocytes # (auto) 0.42 K/uL (0.11-0.59); Monocytes % (auto) 7.2 %; Neutrophils # (auto) 3.61 K/uL (1.40-6.50); Neutrophils % (auto) 61.7 %
[2023-07-21] MEDS: ACETAMINOPHEN 325 MG TAB PO PRN (10:02)
[2023-07-21] MEDS: ENOXAPARIN INJ 40 MG/0.4 ML SYR SQ SCH (10:03)
[2023-07-21] MEDS: PHENAZOPYRIDINE HCL 200 MG TAB PO PRN (11:29)
--- NOTE | 2023-07-21 12:09 | Urology Progress Note ---
<Statement entered by Tayo Martínez MD - 07/21/23 21:50> I have discussed Ms. York's case with MIKE Vargas and agree with the above documentation. Ureteral stent should be providing adequate source control. No plan for additional urologic intervention at this time - we will coordinate outpatient followup. Would recommend 2 weeks of antibiotics based on culture/sensitivities. -Tayo Martínez MD. Date of Service July 21, 2023 Assessment & Plan (1) Right distal ureteral calculus: (2) Pyelonephritis of right kidney: Plan POD #1 s/p Cystoscopy Right Retrograde Pyelogram with radiographic interpretation and Stent Placement Subjectively feeling much better today. Tolerating the stent with minimal bother. Afebrile and hemodynamically stable. Labs today show no leukocytosis and normal renal function. Urine culture final with E. coli. Blood cultures preliminary no growth x 24 hours. No plan for further urological intervention at this time. Continue antibiotics for a total of 14 days per culture sensitivities. Continue Flomax, prn pyridium, prn analgesics for stent management. Plan to follow-up outpatient with urology as scheduled 08/03/2023 to discuss definitive stone treatment. Expected clinical course reviewed, all questions were answered. Urology will sign off. Please call with any further questions or concerns. Admission and Anticipated Discharge Date Admission Date: July 19, 2023 Subjective Patient examined at bedside this AM. Awake, sitting up in bed on arrival. No acute distress. Overall feeling much better today. Tolerating the stent with minimal bother. No fevers, chills, nausea, vomiting. Voiding without issue. Reports some mild hematuria and dysuria. Eager to go home today. Review of Systems Constitutional: as per Subjective / HPI Gastrointestinal: as per Subjective / HPI Genitourinary: as per Subjective / HPI Physical Exam Constitutional: no acute distress Respiratory: no respiratory distress and no labored breathing Neurologic: moves all extremities and awake Psychiatric: A+Ox3, euthymic affect Results & Data Vital Signs (Past 12 Hours) Vital Signs Temp Pulse Pulse Resp BP Pulse Ox O2 Del Method 07/21/23 11:01 54 L 07/21/23 09:13 36.5 C 55 L 17 115/81 98 Room Air 07/21/23 04:03 36.6 C 56 L 18 111/71 98 Room Air PG Care Time/CCT Total # of Minutes Spent Total Time Spent with Patient: Total time spent is greater than 50% in coordination of care (as documented) at patient's floor/unit and/or counseling patient: Coding Level of Care Code 68277 SUB INP/OBS CARE 2/35MIN Diagnoses Right distal ureteral calculus N20.1 Pyelonephritis of right kidney N12
--- NOTE | 2023-07-21 19:31 | Discharge Summary ---
Date of Service July 21, 2023 Admission HPI Per Admitting Provider This is a pleasant 38-year-old female who is vacationing in the [facility]. She developed flank pain approximately 4 to 5 days ago. Her took her to the local ER. She was diagnosed with a kidney stone at that time. She just returned to town today and presented the ER for further evaluation and treatment with fever and flank pain. CAT scan demonstrated a developing right-sided renal abscess with pyelonephritis with a distal right ureter stone. Blood cultures were obtained the patient was given IV Rocephin. Repeat CAT scan was performed and resulted as described above. Consultation obtained with Dr. Ferraro for urology the patient is hemodynamically stable in the ER the plan is for OR in the morning unless the patient decompensates then OR would need to be done more urgently. Principal Diagnosis Right sided pyelonephritis, Small right renal abscesses/phlegmon, Obstructing right ureteral stone Discharge Exam PHYSICAL EXAMINATION Last 24h vital signs reviewed, see documentation in flowsheet General: comfortable appearing, no distress, sitting up in bed. no longer diaphroretic Otherwise exam unchanged 07/20: HEENT: Normocephalic, atraumatic, pupils round and equal, sclerae anicteric, no conjunctival injection, moist mucus membranes Lungs: Normal respiratory effort. Clear to auscultation bilaterally. No RRW Heart: Regular rate and rhythm, no murmurs. No JVD Abdomen: nondistended. Extremities: Warm, dry, well-perfused. No extremity edema. Neuro: Alert and oriented x 4, face symmetric, moves 4 extremities well Psych: Normal affect and behavior Discharge Data Allergies Allergy/AdvReac Type Severity Reaction Status Date / Time No Known Allergies Allergy Verified 07/20/23 09:13 Consultations 07/19/23 18:01 ED Decision to Admit Stat 07/19/23 18:07 Consult Urology Routine Procedures Performed Operation Date: 07/20/23 07:00 Actual Procedures p Cystoscopy Right Retrograde Pyelogram and Stent Placement(Right) - Feng Ellis MD Ordered Studies 07/19/23 15:50 CT abd pelvis IV con only Stat 07/20/23 09:00 FL retrograde includes kub Routine Abdomen/Pelvis CT 07/19/23 15:[address] WITH IV CONTRAST CT DOSE: 1436.87 mGy.cm HISTORY: R FLANK PAIN, FEVERS, DX WITH STONES 5 DAYS AGO TECHNIQUE: Multiaxial CT images of the abdomen and pelvis were performed following the use of intravenous contrast. A dose lowering technique was utilized adhering to the principles of ALARA. COMPARISON STUDY: Abdomen and pelvis CT 11/25/2022. FINDINGS: There are trace bilateral pleural effusions. No pneumoperitoneum. No pneumatosis. No acute fractures. Postoperative changes consistent with prior gastric sleeve procedure. The liver, gallbladder, pancreas, and adrenal glands unremarkable. The spleen is enlarged measuring 15 cm in length. This is similar to the prior study. The main portal vein is patent. Normal caliber abdominal aorta. No retroperitoneal or pelvic lymphadenopathy. No pelvic free fluid. The bladder, uterus, bilateral adnexa are unremarkable. A few colonic diverticula. No evidence for acute diverticulitis. No bowel wall thickening or obstruction. Normal appendix. Normal left kidney. No left-sided hydronephrosis. There is a 4 mm stone within the distal right ureter best seen on image 335. This is 2 cm proximal to the right ureterovesical junction. However, there is no right-sided hydronephrosis. There is heterogeneous enhancement within the right kidney with mild right perinephric edema/fat stranding. This is concerning for a right-sided pyelonephritis. There are few small foci of heterogeneous enhancement within the upper pole of the right kidney with the largest on image 117 measuring 16 mm. These are concerning for small foci of phlegmon/developing abscess. IMPRESSION: 1. A 4 mm nonobstructing stone within the distal right ureter. 2. Heterogeneous enhancement within the right kidney with mild perinephric fat stranding. This is concerning for right-sided pyelonephritis. 3. There are also a few small foci of heterogenous enhancement within the upper pole the right kidney as described above. These are concerning for small foci of phlegmon/developing abscess. 4. Trace bilateral pleural effusions. 5. Splenomegaly, unchanged. ACT 112: Negative or not required by law. Electronically signed by: Jorge Luis Duenas M.D. 07/19/2023 4:58 PM Retrograde Pyelogram 07/20/23 09:00 FL retrograde includes kub CLINICAL HISTORY: RT SIDE CYSTO STENT COMPARISON STUDY: None. FLUOROSCOPY TIME: 9.5 FLUOROSCOPY IMAGES: 2 Ka,r: 2.7 mGy FINDINGS: Retrograde opacification of the right renal collecting system followed by placement of a right ureteral stent. Only proximal portion of the stent is identified and appears in good position. IMPRESSION: ACT 112: Negative or not required by law. Electronically signed by: Jorge Luis Duenas M.D. 07/20/2023 11:19 AM 07/21/23 07:04 07/21/23 07:04 Hospital Course (1) Pyelonephritis: Sepsis due to right sided pyelonephritis present on admission. Early right upper pole small foci of phlegmon/abscess, largest is 16mm. Distal R ureteral stone - 4 mm -consulted urology - R ureteral stent placed 07/20 - follow up with urology as scheduled for definitive stone treatment and stent management -continue flomax -pain controlled with apap, pyridium -urine Cx alanis sensitive E. coli. -I recommended ID consult to make recommendations on oral antibiotic selection and duration of treatment given the areas of small phlegmon/abscesses however she declined ID consult and declined further IV antibiotics. IV access and blood draws have been challenging. -discussed with urologist who recommended 2 weeks augmentin, which is a reasonable plan. Discussed with her strict return precautions to ED if recurrent fever, abdominal/flank pain, any worsening needs repeat imaging of R kidney -warned she may need to be readmitted if bacteremic, fortunately blood cx ngtd at 48h updated this evening Plan Pancytopenia - probably WBC and platelets low because of acute infection, Hg low related to LATESHA. -CBC reviewed today, all counts improved -recommended follow up CBC when she is seen in primary care Iron deficiency anemia - has hx gastric sleeve - discussed iron replacement po after acute symtoms resolve. She plans to see GI soon - overdue for colon cancer screening (brother had at young age) and has increased heartburn -B12 was normal -recommended oral iron replacement and follow up with embalmer assistant Hypokalemia - replaced, resolved Total Time Total Time Spent Total Time Spent (In Minutes): I personally spent: 40 minutes today on clinical care activities including: reviewing chart notes and vital signs reviewing labs discussion with industrial rehabilitation consultant(s) discussion with bedside RN examining and counseling the patient x 2 visits writing orders, prescriptions, discharge instructions documentation Discharge Plan Discharge Items Patient Disposition: Home - Self-Care Reason For Visit: RIGHT PYELONEPHRITIS, RIGHT URETERAL STONE Discharge Diagnosis: Right sided pyelonephritis, Small right renal abscesses/phlegmon, Obstructing right ureteral stone Activity: Resume your previous activity Non-emergency contact: Primary Care Provider and Urologist Call non-emergency contact if: you have any medication questions, your symptoms worsen and you have a fever Follow-up/Referrals: Justin Aranda MD [Primary Care Provider] - Feng Ellis MD [Physician] - Diet: Regular Addtl Attending Provider Instructions: You were treated for pyelonephritis of your right kidney and obstructing right ureteral stone -stent was placed -follow up with urology for definitive stone treatment and stent exchange You have infection of your right kidney and the upper part of the kidney is inflamed with potentially small abscesses vs infected tissue ("phlegmon") -small renal abscesses typically resolve with antibiotics -you declined ID consult -the urologist recommended two weeks of augmentin po -if you develop recurrent fevers or worsening symptoms, including flank/back/abdominal pain, nausea/vomiting or other concerning symptoms you will need to come back in to the ER for repeat imaging to check for worsening renal abscess -your blood cultures are pending (finalize at 5 days, but pretty good to stay negative after 48-72h) If your blood cultures turn positive we may need to call you back to the hospital for IV antibiotics I recommend probiotic or live culture yogurt for 2-4 weeks to prevent diarrhea associated with broad-spectrum antibiotics. These are available over the counter. You have iron deficiency anemia I recommend taking oral iron supplement once daily and scheduling follow up with gastroenterology for evaluation. You are also due for screening colonoscopy because of your family history of colon cancer Follow up with your primary care doctor for repeat CBC to check anemia and other blood counts within a few weeks Pending Studies at Discharge: Yes (Blood cultures) Stand-Alone Forms: My myVBO, Smoking Cessation Medications and DC Order Prescriptions: New acetaminophen 325 mg Tablet 650 mg PO Q4H PRNQty: 0 0RF phenazopyridine [Pyridium] 200 mg Tablet 200 mg PO TID PRN (Reason: dysuria) Qty: 14 0RF amoxicillin-pot clavulanate 875-125 mg tablet 1 tab PO Q12H Qty: 28 0RF ferrous sulfate 324 mg (65 mg iron) tablet,delayed release (DR/EC) 324 mg PO DAILY Qty: 1 0RF Rx Instructions: buy over the counter. It helps to take iron supplement with vitamin C Continued lorazepam [Ativan] 1 mg Tablet 1 mg PO BID PRN (Reason: Anxiety) venlafaxine 37.5 mg capsule,extended release 24hr 37.5 mg PO DAILY tamsulosin 0.4 mg capsule 0.4 mg PO DAILY Discharge Orders: Discharge Order (Routine); Ordered 07/21/23 Ordered By: Estela Myers Admission Data Admit Date/Time: 07/19/23 18:03 Attending Provider: Estela Myers Admit Provider: Bakari Ferris Primary Care Provider: Justin Aranda Other Providers: Buddy Ferraro; Bakari Ferris Other Interventions: Discharge Summary Assessment (RN) Last Done: 07/21/23 14:34 Coding Level of Care Code 05347 INP/OBS DISCH >30 MIN Diagnoses Pyelonephritis N12
== END 2023-07-21 16:00 | disposition home or self-care (01) | DRG 853 ==
LOC: ED 14:50 → 2W 18:03 → SUATTDRO 18:03 → 2W 20:28

== ENCOUNTER 2023-07-25 08:23 | Observation (INO) ==
--- NOTE | 2023-07-25 08:43 | Emergency Department Note ---
Impression & Plan Pyelonephritis of right kidney, Parainfluenza, Fever, Pneumonia ED Provider Note NAME: REYNA BALDWIN AGE: 38 SEX: F : 1985 ARRIVES VIA: Walk-In INFORMANT: Patient ED PROVIDER(S): Napoleon Chicas DO CHIEF COMPLAINT: fever and sob HPI: Patient is a 38-year-old female who presents to the ER with recent admission for pyelonephritis and kidney stone with stent placement who presents to the ER as she was discharged on . She started having fevers of 101 yesterday. She admits to new cough for the past 2 days. She notes it is dry. She admits to significant shortness of breath. She does have factor V Leiden. Denies any headache or change in vision. No belly pain. No nausea, vomiting, or diarrhea. No dysuria, urgency, or frequency. She still taking her antibiotic. ADDITIONAL HISTORY OBTAINED: Per HPI Chronic Medical/Social Conditions Affecting Care: Per HPI PAST MEDICAL HISTORY:See Below PAST SURGICAL HISTORY:See Below FAMILY HISTORY:See Below SOCIAL HISTORY:See Below HOME MEDICATIONS:See Below ALLERGIES:See Below VITALS:See Below PHYSICAL EXAMINATION: GENERAL: Sitting up in bed, alert, well appearing, well nourished, no distress, non-toxic EYE EXAM: normal conjunctiva. PERRL and EOM's grossly intact. OROPHARYNX: mucous membranes are moist NECK: supple, no nuchal rigidity, no adenopathy, non-tender LUNGS: Clear to auscultation. Normal chest wall mechanics HEART: no murmurs, S1 normal and S2 normal ABDOMEN: abdomen soft, non-tender, normo-active bowel sounds, no masses, no rebound or guarding. BACK: Back is symmetrical on inspection and there is no deformity, no midline tenderness, no CVA tenderness. UPPER EXTREMITIES: upper extremities are grossly normal. LOWER EXTREMITIES: No pitting edema. NEURO EXAM: Normal sensorium, cranial nerves II-XII grossly intact, normal speech, no gross weakness of arms, no gross weakness of legs. MEDICAL DECISION MAKING: Patient is a 38-year-old female who presents ER for above-stated complaint. IV was established blood work was obtained. Labs show no significant leukocytosis and mild anemia 10.5. BMP with mild hyponatremia at 3.2. Lactic acid was unremarkable at 1.9. LFTs bilirubin was unremarkable. Pro-Ac normal. UA did still have leukocytes and white cells combination with small amount of epithelial cells. Viral panel was positive for parainfluenza. CT abdomen pelvis shows that the ureteral stent is not quite up in the kidney. I discussed this with urology and they would prefer to replace this if possible today. Also discussed the case with hospitalist that she is having fevers and does appear to have a pneumonia and is on Augmentin. Unclear if the fevers are secondary to the Richie although favored secondary to the parainfluenza possible infiltrate. Patient was given IV Rocephin and azithromycin and fluids. Updated bedside discussed with the hospitalist for further evaluation management treatment. Consults/Care Managements Discussions: Per MDM Triage Nursing notes reviewed. Limited review of prior medical records performed Vital Signs: reviewed and remarkable for no significant abnormalities Differential diagnosis: Differential diagnoses includes but is not limited to gastritis, peptic ulcer disease, GERD, gallbladder disease, pancreatitis, small bowel obstruction, appendicitis, diverticulitis, hernia, urinary tract infection, torsion, perforation, trauma, infectious. ER treatment provided: See below Diagnostics interpreted by me include EKG and cardiac monitoring as listed below: -Cardiac Monitoring: An order was placed for continuous cardiac monitoring. The monitor shows a rate of 80 with sinus rhythm. -ECG: Sinus rhythm rate 85 Normal axis No PVCs QTc 437 -Laboratory studies:Interpreted by me as stated above in MDM and shown below. Imaging studies: Xrays: As interpreted by me: Portable AP upright 1 view of the chest shows no focal infiltrate CTs show: CT of the abdomen pelvis and chest as described above shows pyelonephritis, the abnormal placement of the stent and Procedures: None Critical Care: None Past Med/Surg History Medical History Encounter for pre-operative examination Renal abscess, right Anxiety and depression Obesity Surgical History H/O left cataract extraction Hx of knee surgery History of gastric surgery Gastric Sleeve Social History Smoking Status: Former smoker Tobacco Type: E-cigarettes / Vaping Second Hand Exposure: No; Do You Dip or Chew Tobacco: No; Tobacco Cessation Education Requested by Patient: No Hx Alcohol Use: No Hx Substance Use: No Preferred Language: Tamazight Communication Ability: Effective Section Cutter Required: No Beliefs That Will Affect Care: None Current Living Situation: Spouse Other Information That Helps Us Care for You: No Feels Safe at Home: Yes Safety Concerns: Feels Safe At This Time Assistive Devices: None Allergies Allergies Allergy/AdvReac Type Severity Reaction Status Date / Time No Known Allergies Allergy Verified 07/25/23 09:59 Home Meds Home Medications Medication Instructions Recorded Confirmed lorazepam 1 mg tablet (Ativan) 1 mg PO BID PRN Anxiety 12/01/22 07/25/23 tamsulosin 0.4 mg capsule 0.4 mg PO DAILY 07/19/23 07/25/23 venlafaxine 37.5 mg 37.5 mg PO DAILY 07/19/23 07/25/23 capsule,extended release 24 hr Previous Rx's Medication Instructions Recorded acetaminophen 325 mg tablet 650 mg (2 x 325 mg) PO Q4H PRN #0 07/21/23 tabs amoxicillin 875 mg-potassium 1 tab PO Q12H pyelonephritis #28 07/21/23 clavulanate 125 mg tablet tabs Results & Data (ED) Vital Signs Vital Signs - 24 hr 07/25/23 08:27 07/25/23 08:54 07/25/23 08:56 Temperature 36.2 C L Temperature Source Temporal Artery Scan Pulse Rate 89 87 Pulse Rate [Apical] 88 Pulse Rhythm Regular Pulse Rhythm [Apical] Regular Pulse Strength Normal Respiratory Rate 20 17 Respiratory Effort / Characteristics Non-Labored Spontaneous Respiratory Depth Normal Normal Respiratory Pattern Regular Blood Pressure 132/87 Blood Pressure [Left Arm] 120/86 Blood Pressure Mean 102 Blood Pressure Mean [Left Arm] 97 Blood Pressure Position Sitting Blood Pressure Position [Left Arm] Sitting Pulse Oximetry 97 94 Oxygen Delivery Method Room Air Sepsis Recent Fever Within 48 Hours No Sepsis New/Unexplained Change in Mental Status No Sepsis Action Taken by Nursing No Action Required 07/25/23 09:00 07/25/23 09:15 07/25/23 11:29 Temperature Temperature Source Pulse Rate 79 Pulse Rate [Apical] 90 83 Pulse Rhythm Pulse Rhythm [Apical] Regular Regular Pulse Strength Respiratory Rate 21 18 20 Respiratory Effort / Characteristics Non-Labored Respiratory Depth Normal Normal Respiratory Pattern Blood Pressure Blood Pressure [Left Arm] 120/86 109/77 Blood Pressure Mean Blood Pressure Mean [Left Arm] 97 87 Blood Pressure Position Blood Pressure Position [Left Arm] Sitting Sitting Pulse Oximetry 94 96 98 Oxygen Delivery Method Room Air Room Air Room Air Sepsis Recent Fever Within 48 Hours Sepsis New/Unexplained Change in Mental Status Sepsis Action Taken by Nursing 07/25/23 11:54 07/25/23 12:15 07/25/23 12:45 Temperature Temperature Source Pulse Rate 84 Pulse Rate [Apical] 86 81 Pulse Rhythm Pulse Rhythm [Apical] Pulse Strength Respiratory Rate 20 20 Respiratory Effort / Characteristics Non-Labored Non-Labored Respiratory Depth Normal Normal Respiratory Pattern Blood Pressure Blood Pressure [Left Arm] 109/77 109/77 Blood Pressure Mean Blood Pressure Mean [Left Arm] 87 87 Blood Pressure Position Blood Pressure Position [Left Arm] Pulse Oximetry 95 95 Oxygen Delivery Method Room Air Room Air Sepsis Recent Fever Within 48 Hours Sepsis New/Unexplained Change in Mental Status Sepsis Action Taken by Nursing 07/25/23 12:57 07/25/23 13:11 07/25/23 14:00 Temperature Temperature Source Pulse Rate Pulse Rate [Apical] 83 88 87 Pulse Rhythm Pulse Rhythm [Apical] Regular Pulse Strength Respiratory Rate 21 20 20 Respiratory Effort / Characteristics Non-Labored Non-Labored Respiratory Depth Normal Normal Normal Respiratory Pattern Blood Pressure Blood Pressure [Left Arm] 113/81 113/81 Blood Pressure Mean Blood Pressure Mean [Left Arm] 91 91 Blood Pressure Position Blood Pressure Position [Left Arm] Sitting Pulse Oximetry 96 96 97 Oxygen Delivery Method Room Air Room Air Room Air Sepsis Recent Fever Within 48 Hours Sepsis New/Unexplained Change in Mental Status Sepsis Action Taken by Nursing 07/25/23 14:10 07/25/23 14:17 Temperature 36.6 C Temperature Source Temporal Artery Scan Pulse Rate Pulse Rate [Apical] 86 86 Pulse Rhythm Pulse Rhythm [Apical] Pulse Strength Respiratory Rate 20 20 Respiratory Effort / Characteristics Non-Labored Non-Labored Respiratory Depth Normal Normal Respiratory Pattern Blood Pressure Blood Pressure [Left Arm] 113/81 Blood Pressure Mean Blood Pressure Mean [Left Arm] 91 Blood Pressure Position Blood Pressure Position [Left Arm] Pulse Oximetry 96 97 Oxygen Delivery Method Room Air Room Air Sepsis Recent Fever Within 48 Hours Sepsis New/Unexplained Change in Mental Status Sepsis Action Taken by Nursing Laboratory Data 07/25/23 08:50 07/25/23 08:50 Lab Results 07/25/23 07/25/23 07/25/23 Range/Units 08:50 08:55 10:33 WBC 4.95 (4.8-10.8) K/ul RBC 3.70 L (4.20-5.40) M/uL Hgb 10.5 L (12.0-16.0) g/dl Hct 33.2 L (37.0-47.0) % MCV 89.7 (80.0-100.0) fL MCH 28.4 (25.0-34.0) pg MCHC 31.6 L (32.0-36.0) g/dL RDW Std Deviation 42.5 (36.4-46.3) fL RDW Coeff of Emigdio 13.0 (11.5-14.5) % Plt Count 348 (130-400) K/uL MPV 9.6 (9.4-12.4) fL Immature Gran % (Auto) 2.6 % Neut % (Auto) 66.0 % Lymph % (Auto) 17.0 % Kinney % (Auto) 6.7 % Eos % (Auto) 6.9 % Baso % (Auto) 0.8 % Neut # (Auto) 3.27 (1.40-6.50) K/uL Lymph # (Auto) 0.84 L (1.20-3.40) K/uL Kinney # (Auto) 0.33 (0.11-0.59) K/uL Eos # (Auto) 0.34 (0.00-0.50) K/uL Baso # (Auto) 0.04 (0.00-0.20) K/uL Immature Gran # (Auto) 0.13 (0.01-0.20) K/uL Sodium 141 (136-145) mmol/L Potassium 3.2 L (3.5-5.1) mmol/L Chloride 106 (98-107) mmol/L Carbon Dioxide 29 (21-32) mmol/L Anion Gap 6 (3-11) BUN 5 L (6-23) mg/dl Creatinine 0.56 L (0.6-1.2) mg/dl Est Cr Clr Drug Dosing 157.7 ml/min Est GFR ( Amer) 136.1 ml/min Est GFR (Non-Af Amer) 117.5 ml/min BUN/Creatinine Ratio 8.9 L (10-20) Glucose 94 (70-99(Fasting)) mg/dl Lactate 1.9 (0.4-2.0) mmol/L Calcium 8.3 L (8.6-10.3) mg/dl Magnesium 1.9 (1.7-2.4) mg/dl Total Bilirubin 0.3 (0.2-1.0) mg/dl Direct Bilirubin 0.0 (0-0.2) mg/dl AST 27 (13-39) U/L ALT 32 (7-52) U/L Alkaline Phosphatase 120 H (34-104) U/L Troponin I High Sens 3.2 (0-14) pg/ml Total Protein 6.5 (6.0-8.3) gm/dl Albumin 3.5 (3.4-5.0) gm/dl Procalcitonin 0.07 (0-0.5) ng/ml Urine Color Yellow Urine Appearance Clear (Clear) Urine pH 7.0 (4.5-7.5) Ur Specific [place] 1.008 (1.000-1.030) Urine Protein Negative (Negative) Urine Glucose (UA) Negative (Negative) Urine Ketones Negative (Negative) Urine Blood 1+ H (Negative) Urine Nitrite Negative (Negative) Urine Bilirubin Negative (Negative) Urine Urobilinogen Negative (Negative) Ur Leukocyte Esterase 1+ H (Negative) Urine WBC (Auto) 6-10 H (0-5) /hpf Urine RBC (Auto) 6-10 H (0-2) /hpf U Hyaline Cast (Auto) 0-2 (0-2) /lpf U Epithel Cells (Auto) 3-5 H (0-2) /hpf Urine Bacteria (Auto) None Seen (None Seen) Adenovirus (PCR) Not Detected (NotDetected) B. pertussis DNA (PCR) Not Detected (NotDetected) B.parapertussis DNA PCR Not Detected (NotDetected) C. pneumoniae DNA (PCR) Not Detected (NotDetected) Coronavirus OC43 (PCR) Not Detected (NotDetected) Coronavirus HKU1 (PCR) Not Detected (NotDetected) Coronavirus 229E (PCR) Not Detected (NotDetected) SARS-CoV-2 (PCR) Not Detected (NotDetected) Coronavirus NL63 (PCR) Not Detected (NotDetected) Human Metapneumovir PCR Not Detected (NotDetected) Influenza Type A (PCR) Not Detected (NotDetected) Influenza Type B (PCR) Not Detected (NotDetected) M. pneumoniae (PCR) Not Detected (NotDetected) Parainfluenza 1 (PCR) Not Detected (NotDetected) Parainfluenza 2 (PCR) Not Detected (NotDetected) Parainfluenza 3 (PCR) DETECTED A (NotDetected) Parainfluenza 4 (PCR) Not Detected (NotDetected) RSV (PCR) Not Detected (NotDetected) Entero/Rhino (PCR) Not Detected (NotDetected) Administered Medications Discontinued Medications Acetaminophen (Acetaminophen 325 Mg Tab) Confirm Administered Dose 650 mg .ROUTE .STK-MED ONE Stop: 07/25/23 11:26 Last Admin: 07/25/23 11:26 Dose: 650 mg Documented By: ROSALIE Acetaminophen (Acetaminophen 325 Mg Tab) 650 mg PO NOW STA Stop: 07/25/23 11:26 Last Admin: 07/25/23 11:49 Dose: Not Given Documented By: ROSALIE Sodium Chloride (Nss) 1,000 mls @ 999 mls/hr IV .Q1H1M ONE Stop: 07/25/23 09:40 Last Infusion: 07/25/23 10:45 Dose: Infused Documented By: Admin: 07/25/23 09:14 Dose: 999 mls/hr Documented By: ROSALIE Ceftriaxone Sodium (Rocephin) 2,000 mg in 50 mls @ 100 mls/hr IV NOW STA Stop: 07/25/23 12:43 Last Infusion: 07/25/23 12:52 Dose: Infused Documented By: Admin: 07/25/23 12:21 Dose: 100 mls/hr Documented By: ROSALIE Azithromycin 500 mg/ Dextrose 255 mls @ 125 mls/hr IV NOW ONE Stop: 07/25/23 14:16 Last Admin: 07/25/23 12:51 Dose: 125 mls/hr Documented By: ROSALIE Ioversol (Optiray 320 125ml) 112 ml IV ONCE ONE Stop: 07/25/23 11:01 Last Admin: 07/25/23 11:01 Dose: 112 ml Documented By: ESTELLA Imaging Data Radiologist's Impression: Chest X-Ray 07/25/23 08:31 XR chest 1V portable CLINICAL HISTORY: Sepsis. COMPARISON STUDY: Chest radiograph December 01, 2022. FINDINGS: Lung volumes are normal. Lungs are clear. There is no pneumothorax or pleural effusion. Cardiac size is normal. Mediastinal contours are normal. There is no evidence for pulmonary edema. IMPRESSION: No acute cardiopulmonary findings. ACT 112: Negative or not required by law. Electronically signed by: Miky Diaz M.D. 07/25/2023 9:28 AM Abdomen/Pelvis CT 07/25/23 08:41 CT abd pelvis IV con only CLINICAL HISTORY: right flank pain TECHNIQUE: Helical axial images of the abdomen and pelvis were obtained and displayed. Automated dose lowering techniques and/or adjustment according to patient size were utilized for this exam. This exam was performed with intravenous contrast. COMPARISON: Comparison is made to CT abdomen pelvis 07/19/2023 FINDINGS: Lower chest: Scattered groundglass and nodular opacities are seen in the left lung base. Liver: Unremarkable. No focal lesions are seen. Gallbladder and biliary tree: No calcified gallstones. Normal caliber wall. No intra- or extrahepatic biliary ductal dilation. Pancreas: Unremarkable, no focal lesions. Spleen: Stable mild splenomegaly. Adrenals: Unremarkable. Kidneys and ureters: Inhomogeneity of the perfusion of the right kidney is seen with wedge-shaped hypointensity is. Redemonstration of irregular hypodensities in the right superior pole without drainable fluid collection. A right nephroureteral stent is seen. The proximal portion of the stent lies within the proximal ureter rather than the collecting system. Bladder: Unremarkable. Reproductive organs: Unremarkable. Bowel: The appendix is normal. Patient is status post gastric bypass surgery and there is a small hiatal hernia. Lymph nodes Retroperitoneal: Unremarkable. Pelvic: Unremarkable. Mesenteric: Unremarkable. Peritoneum: Normal. Vessels: Unremarkable. Abdominal wall: Unremarkable. Bones: Unremarkable. IMPRESSION: 1. Findings compatible with continued pyelonephritis and possible phlegmon in the right superior pole without evidence of drainable fluid collection. 2. Interval placement of a nephroureteral stent. The proximal portion of the stent appears to be in the proximal ureter rather than the renal collecting system. 3. Additional findings as above. ACT 112: Negative or not required by law. Electronically signed by: Ross Leone M.D. 07/25/2023 11:36 AM Chest CTA 07/25/23 08:41 CHEST CTA for PULMONARY ARTERIES CT DOSE: 2400.14 mGy.cm HISTORY: Cough. Shortness of breath. TECHNIQUE: Multiaxial CT images of the chest were performed following the intravenous administration of contrast to evaluate the pulmonary arteries. 3D/Maximal intensity projection images were also obtained. Sagittal and coronal reformations were also reviewed. A dose lowering technique was utilized adhering to the principles of ALARA. COMPARISON STUDY: Abdomen and pelvis CT 07/19/2023. FINDINGS: Normal caliber thoracic aorta with no evidence for a dissection. The heart is normal in size. No pleural or pericardial effusions. No filling defects within the pulmonary arteries to suggest a pulmonary embolus. Normal thyroid gland. The abdominal structures will be reported on the same day abdomen and pelvis CT. Postoperative changes within the stomach. There is a small hiatus hernia. Normal caliber esophagus. A few borderline enlarged subcarinal and hilar lymph nodes. These may be reactive. No acute fractures. No pneumothorax. The central airways are patent. There is mild central bronchial wall thickening. No evidence for pulmonary edema. There are tree-in-bud nodular opacities within the base of the left lower lobe and lingula. There is associated mild air trapping within the lungs. IMPRESSION: 1. No evidence for a pulmonary embolus. 2. Tree-in-bud nodular opacities within the left lung base with associated bronchial wall thickening. This is consistent with an infectious bronchiolitis/atypical pneumonitis. Aspiration pneumonitis is also considered in the differential diagnosis. 3. Mild air trapping within the lungs. 4. Mild mediastinal and bilateral hilar lymphadenopathy. This is likely reactive. ACT 112: Negative or not required by law. Electronically signed by: Jorge Luis Duenas M.D. 07/25/2023 11:19 AM Discharge Plan Visit Data Chief Complaint: Referred by Doctor Stated Complaint: FEVER, SOB, KIDNEY PAIN RIGHT SIDE ED Provider: Napoleon Chicas Discharge Problem: Pyelonephritis of right kidney, Parainfluenza, Fever, Pneumonia Forms Stand Alone Forms: [employer] Prescriptions Prescriptions: No Action lorazepam [Ativan] 1 mg Tablet 1 mg PO BID PRN (Reason: Anxiety) venlafaxine 37.5 mg capsule,extended release 24hr 37.5 mg PO DAILY tamsulosin 0.4 mg capsule 0.4 mg PO DAILY acetaminophen 325 mg Tablet 650 mg PO Q4H PRNQty: 0 0RF amoxicillin-pot clavulanate 875-125 mg tablet 1 tab PO Q12H Qty: 28 0RF Rx Instructions: STARTED 07/20 FOR 14 DAYS Referrals Referrals: Justin Aranda MD [Primary Care Provider] - Discharge Problem: Fever Qualifiers: Fever type: unspecified Qualified Code(s): R50.9 - Fever, unspecified Pneumonia Qualifiers: Pneumonia type: due to unspecified organism Laterality: unspecified laterality Lung location: unspecified part of lung Qualified Code(s): J18.9 - Pneumonia, unspecified organism
[2023-07-25 09:14] LABS: Basophils # (auto) 0.04 K/uL (0.00-0.20); Basophils % (auto) 0.8 %; Eosinophils # (auto) 0.34 K/uL (0.00-0.50); Eosinophils % (auto) 6.9 %; Hematocrit (blood only) 33.2 % (37.0-47.0); Hemoglobin 10.5 g/dl (12.0-16.0); Immature Granulocytes # (auto) 0.13 K/uL (0.01-0.20); Immature Granulocytes % (auto) 2.6 %; Lymphocytes # (auto) 0.84 K/uL (1.20-3.40); Mean Corpuscular Hemoglobin 28.4 pg (25.0-34.0); Mean Corpuscular Hgb Conc 31.6 g/dL (32.0-36.0); Mean Corpuscular Volume 89.7 fL (80.0-100.0); Mean Platelet Volume 9.6 fL (9.4-12.4); Monocytes # (auto) 0.33 K/uL (0.11-0.59); Monocytes % (auto) 6.7 %; Neutrophils # (auto) 3.27 K/uL (1.40-6.50); Platelet Count 348 K/uL (130-400); RDW Standard Deviation 42.5 fL (36.4-46.3); White Blood Count 4.95 K/ul (4.8-10.8)
[2023-07-25] MEDS: SODIUM CHLORIDE 0.9% 1,000 ML IV ONE (09:14)
[2023-07-25 09:25] LABS: Albumin Level 3.5 gm/dl (3.4-5.0); BUN Creatinine Ratio 8.9 (10-20); Bilirubin,Total 0.3 mg/dl (0.2-1.0); Calcium 8.3 mg/dl (8.6-10.3); Creatinine Clr Calc Pharmacy 157.7 ml/min; Est GFR (African American) 136.1 ml/min; Est GFR (Non-African American) 117.5 ml/min; Magnesium 1.9 mg/dl (1.7-2.4); Potassium 3.2 mmol/L (3.5-5.1); Total Protein 6.5 gm/dl (6.0-8.3)
--- NOTE | 2023-07-25 09:29 | XRay Report ---
XR chest 1V portable CLINICAL HISTORY: Sepsis. COMPARISON STUDY: Chest radiograph December 01, 2022. FINDINGS: Lung volumes are normal. Lungs are clear. There is no pneumothorax or pleural effusion. Car diac size is normal. Mediastinal contours are normal. There is no evidence for pulmonary edema. IMPRESSION: No acute cardiopulmonary findings. ACT 112: Negative or not required by law. Electronically signed by: Miky Diaz M.D. 07/25/2023 9:28 AM
[2023-07-25 09:31] LABS: Troponin I High Sensitivity 3.2 pg/ml (0-14)
[2023-07-25 10:14] LABS: Adenovirus PCR Not Detected (NotDetected); Bordetella parapertussis PCR Not Detected (NotDetected); Bordetella pertussis PCR Not Detected (NotDetected); Chlamydia pneumoniae PCR Not Detected (NotDetected); Coronavirus 229E PCR Not Detected (NotDetected); Coronavirus CoV-2 (COVID19)PCR Not Detected (NotDetected); Coronavirus HKU1 PCR Not Detected (NotDetected); Coronavirus NL63 PCR Not Detected (NotDetected); Coronavirus OC43PCR Not Detected (NotDetected); Human Metapneumovirus PCR Not Detected (NotDetected); Influenza A PCR Not Detected (NotDetected); Influenza B PCR Not Detected (NotDetected); Mycoplasma pneumoniae PCR Not Detected (NotDetected); Parainfluenza Virus 1 PCR Not Detected (NotDetected); Parainfluenza Virus 2 PCR Not Detected (NotDetected); Parainfluenza Virus 4 PCR Not Detected (NotDetected); Respiratory Syncytial VirusPCR Not Detected (NotDetected); Rhinovirus/Enterovirus PCR Not Detected (NotDetected)
[2023-07-25 10:32] LABS: Parainfluenza Virus 3 PCR DETECTED (NotDetected)
[2023-07-25] MEDS: OPTIRAY 320 125ml IV ONE (11:01)
--- NOTE | 2023-07-25 11:21 | CT Scan Report ---
CHEST CTA for PULMONARY ARTERIES CT DOSE: 2400.14 mGy.cm HISTORY: Cough. Shortness of breath. TECHNIQUE: Multiaxial CT images of the chest were performed following the intravenous administration of contrast to evaluate the pulmonary arteries. 3D/Maximal intensity projection images were also obta ined. Sagittal and coronal reformations were also reviewed. A dose lowering technique was utilized a dhering to the principles of ALARA. COMPARISON STUDY: Abdomen and pelvis CT 07/19/2023. FINDINGS: Normal caliber thoracic aorta with no evidence for a dissection. The heart is normal in siz e. No pleural or pericardial effusions. No filling defects within the pulmonary arteries to suggest a pulmonary embolus. Normal thyroid gland. The abdominal structures will be reported on the same day a bdomen and pelvis CT. Postoperative changes within the stomach. There is a small hiatus hernia. Libby l caliber esophagus. A few borderline enlarged subcarinal and hilar lymph nodes. These may be reactiv e. No acute fractures. No pneumothorax. The central airways are patent. There is mild central bronchi al wall thickening. No evidence for pulmonary edema. There are tree-in-bud nodular opacities within t he base of the left lower lobe and lingula. There is associated mild air trapping within the lungs. IMPRESSION: 1. No evidence for a pulmonary embolus. 2. Tree-in-bud nodular opacities within the left lung base with associated bronchial wall thickening. This is consistent with an infectious bronchiolitis/atypical pneumonitis. Aspiration pneumonitis is also considered in the differential diagnosis. 3. Mild air trapping within the lungs. 4. Mild mediastinal and bilateral hilar lymphadenopathy. This is likely reactive. ACT 112: Negative or not required by law. Electronically signed by: Jorge Luis Duenas M.D. 07/25/2023 11:19 AM
[2023-07-25] MEDS: ACETAMINOPHEN 325 MG TAB ONE (11:26)
--- NOTE | 2023-07-25 11:37 | CT Scan Report ---
CT abd pelvis IV con only CLINICAL HISTORY: right flank pain TECHNIQUE: Helical axial images of the abdomen and pelvis were obtained and displayed. Automated dose lowering techniques and/or adjustment according to patient size were utilized for this exam. This e xam was performed with intravenous contrast. COMPARISON: Comparison is made to CT abdomen pelvis 07/19/2023 FINDINGS: Lower chest: Scattered groundglass and nodular opacities are seen in the left lung base. Liver: Unremarkable. No focal lesions are seen. Gallbladder and biliary tree: No calcified gallstones. Normal caliber wall. No intra- or extrahepatic biliary ductal dilation. Pancreas: Unremarkable, no focal lesions. Spleen: Stable mild splenomegaly. Adrenals: Unremarkable. Kidneys and ureters: Inhomogeneity of the perfusion of the right kidney is seen with wedge-shaped hyp ointensity is. Redemonstration of irregular hypodensities in the right superior pole without drainabl e fluid collection. A right nephroureteral stent is seen. The proximal portion of the stent lies with in the proximal ureter rather than the collecting system. Bladder: Unremarkable. Reproductive organs: Unremarkable. Bowel: The appendix is normal. Patient is status post gastric bypass surgery and there is a small hia demi hernia. Lymph nodes Retroperitoneal: Unremarkable. Pelvic: Unremarkable. Mesenteric: Unremarkable. Peritoneum: Normal. Vessels: Unremarkable. Abdominal wall: Unremarkable. Bones: Unremarkable. IMPRESSION: 1. Findings compatible with continued pyelonephritis and possible phlegmon in the right superior dione e without evidence of drainable fluid collection. 2. Interval placement of a nephroureteral stent. The proximal portion of the stent appears to be in the proximal ureter rather than the renal collecting system. 3. Additional findings as above. ACT 112: Negative or not required by law. Electronically signed by: Ross Leone M.D. 07/25/2023 11:36 AM
[2023-07-25] MEDS: ACETAMINOPHEN 325 MG TAB PO STA (11:49)
[2023-07-25 11:51] LABS: Appearance Urine Clear (Clear); Bacteria Urine Automated None Seen (None Seen); Bilirubin Urine Negative (Negative); Blood Urine 1+ (Negative); Cast Urine Automated 0-2 /lpf (0-2); Color Urine Yellow; Glucose Urine UA Negative (Negative); Ketones Urine Negative (Negative); Leukocyte Esterase Urine 1+ (Negative); Nitrite Urine Negative (Negative); Protein Urine Negative (Negative); Specific Gravity Urine 1.008 (1.000-1.030); Urobilinogen Urine Negative (Negative)
[2023-07-25] MEDS: cefTRIAXone SODIUM 2,000 MG/50 ML BAG IV STA (12:21)
--- NOTE | 2023-07-25 12:39 | History & Physical Report ---
Date of Service July 25, 2023 Assessment & Plan (1) Parainfluenza virus pneumonia: Plan: Most likely cause of her fever at home as occurred at same time of shortness of breath and cough Symptomatic treatment only - guaifenesin/dextromethorphan for cough Recommend private room but not only standard precautions required (2) Pyelonephritis of right kidney: Plan: Suspect just residual CT findings from prior but given stent is not in pelvis of kidney possible (but much less likely) this is driving her fever No CVA tenderness on exam Switch Augmentin to IV ceftriaxone pending blood cultures and urology management of stent (3) Ureteral stent displacement: Plan: Consult urology NPO after midnight per urology, IV fluids Plan VTE Prophylaxis - low risk Diet - regular Disposition - observation to med/surg Admission and Anticipated Discharge Date Admission Date: July 25, 2023 History of Present Illness Primary Care Provider: Justin Aranda MD Velma York is a 38 year old female who presents to the ER with shortness of breath, wheezing, nonproductive cough. She was recently hospitalized for rig ht-sided pyelonephritis with a small right renal abscess/phlegmon and obstructing right ureteral stone - treated with ureteral stent and she remains on Augmentin on discharge for pansensitive E. coli. She was discharged 4 days ago. Symptoms started 24 -36 hours after discharge with fever 100-101 degrees Farenheit, shortness of breath and non-productive cough. She has no asthma or COPD. Currently O2 sats > 94% on room air. No chest pain. Allergies Allergy/AdvReac Type Severity Reaction Status Date / Time No Known Allergies Allergy Verified 07/25/23 09:59 Home Medications Medication Instructions Recorded Confirmed Type lorazepam 1 mg tablet (Ativan) 1 mg PO BID PRN Anxiety 12/01/22 07/25/23 History tamsulosin 0.4 mg capsule 0.4 mg PO DAILY 07/19/23 07/25/23 History venlafaxine 37.5 mg 37.5 mg PO DAILY 07/19/23 07/25/23 History capsule,extended release 24 hr acetaminophen 325 mg tablet 650 mg (2 x 325 mg) PO Q4H PRN #0 07/21/23 07/25/23 Rx tabs amoxicillin 875 mg-potassium 1 tab PO Q12H pyelonephritis #28 07/21/23 07/25/23 Rx clavulanate 125 mg tablet tabs Past Med/Surg History Medical History Encounter for pre-operative examination Renal abscess, right Anxiety and depression Obesity Surgical History H/O left cataract extraction Hx of knee surgery History of gastric surgery Gastric Sleeve Social History Smoking Status: Former smoker Tobacco Type: E-cigarettes / Vaping Second Hand Exposure: No; Do You Dip or Chew Tobacco: No; Tobacco Cessation Education Requested by Patient: No Hx Alcohol Use: No Hx Substance Use: No Preferred Language: Taiwanese Communication Ability: Effective 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 Beliefs That Will Affect Care: None Current Living Situation: Spouse Other Information That Helps Us Care for You: No Feels Safe at Home: Yes Safety Concerns: Feels Safe At This Time Assistive Devices: None Review of Systems Review of Systems: All systems reviewed & are unremarkable except as noted in HPI & below Physical Exam Constitutional: WD/WN, vitals as above Eyes: + anicteric sclerae; normal pupil size ENMT: external ear and nose normal, oropharynx normal Respiratory: normal respiratory effort and + cough; no respiratory distress Auscultation: + wheezes (mild expiratory); breath sounds present, no diminished lung sounds, no crackles, no rales and no rhonchi Cardiovascular: Rate/Rhythm: regular rate and regular rhythm Heart Sounds: no murmur Extremities: normal capillary refill; no calf tenderness and no pedal edema Gastrointestinal (Abdomen): normal bowel sounds, soft, nontender, no hepatosplenomegaly Musculoskeletal: no cyanosis or clubbing, extremities motor strength 5/5 Skin: no rashes, warm and dry Neurologic: moves all extremities and awake; not confused Psychiatric: A+Ox3, euthymic affect Genitourinary: no CVA tenderness Results & Data Results & Data Vital Signs (Past 12 Hours) Vital Signs Temp Pulse Pulse Resp BP BP Pulse Ox 07/25/23 12:15 81 20 109/77 95 07/25/23 11:54 86 20 109/77 95 07/25/23 11:29 83 20 109/77 98 07/25/23 09:15 90 18 120/86 96 07/25/23 09:00 79 21 94 07/25/23 08:56 87 07/25/23 08:54 88 17 120/86 94 07/25/23 08:27 36.2 C L 89 20 132/87 97 O2 Del Method 07/25/23 12:15 Room Air 07/25/23 11:54 Room Air 07/25/23 11:29 Room Air 07/25/23 09:15 Room Air 07/25/23 09:00 Room Air 07/25/23 08:56 07/25/23 08:54 07/25/23 08:27 Room Air Laboratory Results Abnormal lab results 07/25/23 07/25/23 07/25/23 Range/Units 08:50 08:55 10:33 RBC 3.70 L (4.20-5.40) M/uL Hgb 10.5 L (12.0-16.0) g/dl Hct 33.2 L (37.0-47.0) % MCHC 31.6 L (32.0-36.0) g/dL Lymph # (Auto) 0.84 L (1.20-3.40) K/uL Potassium 3.2 L (3.5-5.1) mmol/L BUN 5 L (6-23) mg/dl Creatinine 0.56 L (0.6-1.2) mg/dl BUN/Creatinine Ratio 8.9 L (10-20) Calcium 8.3 L (8.6-10.3) mg/dl Alkaline Phosphatase 120 H (34-104) U/L Urine Blood 1+ H (Negative) Ur Leukocyte Esterase 1+ H (Negative) Urine WBC (Auto) 6-10 H (0-5) /hpf Urine RBC (Auto) 6-10 H (0-2) /hpf U Epithel Cells (Auto) 3-5 H (0-2) /hpf Parainfluenza 3 (PCR) DETECTED A (NotDetected) Diagnostic Findings CHEST CTA for PULMONARY ARTERIES CT DOSE: 2400.14 mGy.cm HISTORY: Cough. Shortness of breath. TECHNIQUE: Multiaxial CT images of the chest were performed following the intravenous administration of contrast to evaluate the pulmonary arteries. 3D/Maximal intensity projection images were also obtained. Sagittal and coronal reformations were also reviewed. A dose lowering technique was utilized adhering to the principles of ALARA. COMPARISON STUDY: Abdomen and pelvis CT 07/19/2023. FINDINGS: Normal caliber thoracic aorta with no evidence for a dissection. The heart is normal in size. No pleural or pericardial effusions. No filling defects within the pulmonary arteries to suggest a pulmonary embolus. Normal thyroid gland. The abdominal structures will be reported on the same day abdomen and pelvis CT. Postoperative changes within the stomach. There is a small hiatus hernia. Normal caliber esophagus. A few borderline enlarged subcarinal and hilar lymph nodes. These may be reactive. No acute fractures. No pneumothorax. The central airways are patent. There is mild central bronchial wall thickening. No evidence for pulmonary edema. There are tree-in-bud nodular opacities within the base of the left lower lobe and lingula. There is associated mild air trapping within the lungs. IMPRESSION: 1. No evidence for a pulmonary embolus. 2. Tree-in-bud nodular opacities within the left lung base with associated bronchial wall thickening. This is consistent with an infectious bronchiolitis/atypical pneumonitis. Aspiration pneumonitis is also considered in the differential diagnosis. 3. Mild air trapping within the lungs. 4. Mild mediastinal and bilateral hilar lymphadenopathy. This is likely reactive. CT abd pelvis IV con only CLINICAL HISTORY: right flank pain TECHNIQUE: Helical axial images of the abdomen and pelvis were obtained and displayed. Automated dose lowering techniques and/or adjustment according to patient size were utilized for this exam. This exam was performed with intravenous contrast. COMPARISON: Comparison is made to CT abdomen pelvis 07/19/2023 FINDINGS: Lower chest: Scattered groundglass and nodular opacities are seen in the left lung base. Liver: Unremarkable. No focal lesions are seen. Gallbladder and biliary tree: No calcified gallstones. Normal caliber wall. No intra- or extrahepatic biliary ductal dilation. Pancreas: Unremarkable, no focal lesions. Spleen: Stable mild splenomegaly. Adrenals: Unremarkable. Kidneys and ureters: Inhomogeneity of the perfusion of the right kidney is seen with wedge-shaped hypointensity is. Redemonstration of irregular hypodensities in the right superior pole without drainable fluid collection. A right nephroureteral stent is seen. The proximal portion of the stent lies within the proximal ureter rather than the collecting system. Bladder: Unremarkable. Reproductive organs: Unremarkable. Bowel: The appendix is normal. Patient is status post gastric bypass surgery and there is a small hiatal hernia. Lymph nodes Retroperitoneal: Unremarkable. Pelvic: Unremarkable. Mesenteric: Unremarkable. Peritoneum: Normal. Vessels: Unremarkable. Abdominal wall: Unremarkable. Bones: Unremarkable. IMPRESSION: 1. Findings compatible with continued pyelonephritis and possible phlegmon in the right superior pole without evidence of drainable fluid collection. 2. Interval placement of a nephroureteral stent. The proximal portion of the stent appears to be in the proximal ureter rather than the renal collecting system. 3. Additional findings as above. ADDENDUM Groundglass opacities in the left lung base are compatible with pneumonia which is new from prior exam. Electronically signed by: Ross Leone M.D. 07/25/2023 2:35 PM ADDENDUM END Medications Administered ER medications given: Normal saline 1 L bolus Acetaminophen 650 mg p.o. Ceftriaxone 2 g IV Azithromycin 500 mg IV Code Status & VTE Plan Code Status Full VTE Prophylaxis Plan VTE Prophylaxis will be ordered: No PG Care Time/CCT Total # of Minutes Spent Total Time Spent with Patient: Total time spent is greater than 50% in coordination of care (as documented) at patient's floor/unit and/or counseling patient: Coding Level of Care Code 19508 INT INP/OBS CARE 2/55MIN Diagnoses Parainfluenza virus pneumonia J12.2 Pyelonephritis of right kidney N12 Ureteral stent displacement T83.122A
[2023-07-25] MEDS: AZITHROMYCIN 500 MG in DEXTROSE 5% 250 ML IV ONE (12:51)
--- NOTE | 2023-07-25 12:54 | Urology Consultation ---
Date of Consultation July 25, 2023 Assessment & Plan (1) Pyelonephritis of right kidney: 38 yo/F with recent admission for right pyelonephritis and right ureteral stone status post stent placement presented today with fever, cough and shortness of breath. Patient is status post right ureteral stent on 07/20/2023 She is afebrile and hemodynamically stable at present Labs reviewedcreatinine 0.56, no leukocytosis Urine and blood cultures are pending Prior urine culture 07/18 with E. coli She has been started on IV ceftriaxone CT imaging reviewed and discussed with findings compatible with pyelonephritis and possible phlegmon in the right superior pole without evidence of drainable fluid collection; the proximal portion of the right ureteral stent appears to be in the proximal ureter; no hydronephrosis. Stent is displaced slightly into the proximal ureter, but appears to be draining appropriately as there is no hydronephrosis Patient is not having any flank pain at present Her fever may be multifactorial given parainfluenza with bronchiolitis/pneumonitis Will plan to monitor with IV antibiotics and hydration for now Make NPO at ME to reassess If she clinically worsens with persistent fevers, N/V or flank pain, then may require ureteral stent exchange Plan of care reviewed with Dr. Carlos JOSEPH will follow History of Present Illness History of Present Illness This is a 38-year-old female with recent hospital admission for pyelonephritis and obstructing right ureteral stone status post right ureteral stent placement. She was discharged to home on 07/21/23 with Augmentin. She presented to the emergency department today for evaluation of fever, cough, and shortness of breath. On arrival, she was afebrile and hemodynamically stable. Labs reviewed and creatinine 0.56, WBC 4.95, hemoglobin 10.5. Urinalysis shows 1+ blood, 1+ LE, 6-10 WBC, 6-10 RBC, 3-5 epithelial cells, negative for bacteria. Urine and blood cultures obtained and pending. PCR detected parainfluenza 3. Work-up included CT abdomen and pelvis which showed findings compatible with pyelonephritis and possible phlegmon in the right superior pole without evidence of drainable fluid collection. The proximal portion of the right ureteral stent appears to be in the proximal ureter. She had a chest CTA which showed no evidence for a pulmonary embolus, but findings consistent with an infectious bronchiolitis/atypical pneumonitis. Patient seen and examined in the emergency department. She is awake and sitting up in litter, no apparent distress. She denies flank or abdominal pain. She has been voiding spontaneously without difficulty. No dysuria. She reports she developed significant cough and was having fevers at home. She has been taking Tylenol at home. She notes her last fever was yesterday evening. No fever or c hills at present. No nausea or vomiting. She has had a few sips of soda today. Allergies Allergy/AdvReac Type Severity Reaction Status Date / Time No Known Allergies Allergy Verified 07/25/23 09:59 Home Medications Medication Instructions Recorded Confirmed Type lorazepam 1 mg tablet (Ativan) 1 mg PO BID PRN Anxiety 12/01/22 07/25/23 History tamsulosin 0.4 mg capsule 0.4 mg PO DAILY 07/19/23 07/25/23 History venlafaxine 37.5 mg 37.5 mg PO DAILY 07/19/23 07/25/23 History capsule,extended release 24 hr acetaminophen 325 mg tablet 650 mg (2 x 325 mg) PO Q4H PRN #0 07/21/23 07/25/23 Rx tabs amoxicillin 875 mg-potassium 1 tab PO Q12H pyelonephritis #28 07/21/23 07/25/23 Rx clavulanate 125 mg tablet tabs Patient History Medical History Encounter for pre-operative examination Renal abscess, right Anxiety and depression Obesity Surgical History H/O left cataract extraction Hx of knee surgery History of gastric surgery Gastric Sleeve Social History Smoking Status: Former smoker Tobacco Type: E-cigarettes / Vaping Hx Alcohol Use: No Hx Substance Use: No Preferred Language: Divehi Communication Ability: Effective 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: No Beliefs That Will Affect Care: None Current Living Situation: Spouse Feels Safe at Home: Yes Assistive Devices: None Review of Systems Review of Systems: All systems reviewed & are unremarkable except as noted in HPI & below Physical Exam Constitutional: well developed and well nourished; no acute distress and not ill appearing Eyes: no scleral abnormality Respiratory: normal respiratory effort; no respiratory distress and no labored breathing Cardiovascular: Rate/Rhythm: regular rate Gastrointestinal (Abdomen): Inspection/Auscultation: abdomen normal to inspection Musculoskeletal: Head/Neck/Chest: normocephalic Skin: No visible skin rashes on exposed skin Neurologic: moves all extremities and awake Psychiatric: Orientation: alert and oriented x 3 Results & Data Vital Signs (Past 12 Hours) Vital Signs Temp Pulse Pulse Resp BP BP Pulse Ox 07/25/23 12:15 81 20 109/77 95 07/25/23 11:54 86 20 109/77 95 07/25/23 11:29 83 20 109/77 98 07/25/23 09:15 90 18 120/86 96 07/25/23 09:00 79 21 94 07/25/23 08:56 87 07/25/23 08:54 88 17 120/86 94 07/25/23 08:27 36.2 C L 89 20 132/87 97 O2 Del Method 07/25/23 12:15 Room Air 07/25/23 11:54 Room Air 07/25/23 11:29 Room Air 07/25/23 09:15 Room Air 07/25/23 09:00 Room Air 07/25/23 08:56 07/25/23 08:54 07/25/23 08:27 Room Air PG Care Time/CCT Total # of Minutes Spent Total Time Spent with Patient: Total time spent is greater than 50% in coordination of care (as documented) at patient's floor/unit and/or counseling patient: Coding Level of Care Code 44415 IN/OBS CONSULT LVL 4,60M Diagnoses Pyelonephritis of right kidney N12
[2023-07-25] MEDS ORDERED: ONDANSETRON INJ 2 MG/ML 2 ML VIAL IV PRN (15:00)
[2023-07-25] MEDS: ACETAMINOPHEN 325 MG TAB PO PRN (15:55)
[2023-07-25] MEDS: guaiFENesin/DEXTROM SYRUP 200MG/20MG 10ML UDC PO PRN (16:10)
[2023-07-25] MEDS: LACTATED RINGER'S 1,000 ML IV SCH (17:25)
[2023-07-25] MEDS: LORazepam 1 MG TAB PO PRN (18:05)
--- NOTE | 2023-07-26 07:41 | Urology Progress Note ---
Date of Service July 26, 2023 Assessment & Plan (1) Pyelonephritis of right kidney: (2) Right distal ureteral calculus: (3) Ureteral stent displacement: Plan: 38 yo/F with recent admission for right pyelonephritis and right ureteral stone status post stent placement on 07/20/23 presented with fever, cough and shortness of breath; CTAP showed right ureteral stent displaced into the proximal ureter, no hydronephrosis. Patient remains hemodynamically stable, Tmax 37.7 this a.m. Labs reviewedcreatinine 0.60, WBC 5.71, hemoglobin 10.3 Blood culture showing no growth x 24 hours Urine culture pending Remains on IV ceftriaxone Reports some left flank discomfort, tolerable We discussed options including conservative management or right ureteral stent exchange today After discussion, she would like to proceed with right ureteral stent exchange Risks and benefits of procedure to be reviewed with patient by Dr. Ferraro Keep NPO for procedure Continue with scheduled IV antibiotics preoperatively will follow Admission and Anticipated Discharge Date Admission Date: July 25, 2023 Subjective Patient seen and examined at bedside this morning No acute issues overnight She reports some left flank pain, tolerable She is voiding without difficulty No dysuria or hematuria She reports mild fever this morning Continues with cough She is NPO Review of Systems Constitutional: as per Subjective / HPI Gastrointestinal: as per Subjective / HPI Genitourinary: as per Subjective / HPI Physical Exam Constitutional: well developed and well nourished; no acute distress and not ill appearing Eyes: no scleral abnormality Respiratory: normal respiratory effort; no respiratory distress and no labored breathing Cardiovascular: Rate/Rhythm: regular rate Gastrointestinal (Abdomen): Inspection/Auscultation: abdomen normal to inspection Musculoskeletal: Head/Neck/Chest: normocephalic Neurologic: moves all extremities and awake Psychiatric: Orientation: alert and oriented x 3 Results & Data Vital Signs (Past 12 Hours) Vital Signs Temp Pulse Resp BP Pulse Ox O2 Del Method 07/26/23 07:17 36.9 C 100 H 18 115/68 93 Room Air 07/26/23 06:05 37.5 C 07/26/23 05:38 37.7 C H 07/25/23 23:35 Room Air 07/25/23 21:30 36.7 C 98 H 20 104/67 97 Room Air PG Care Time/CCT Total # of Minutes Spent Total Time Spent with Patient: Total time spent is greater than 50% in coordination of care (as documented) at patient's floor/unit and/or counseling patient: Coding Level of Care Code 45156 SUB INP/OBS CARE 2MIN Diagnoses Pyelonephritis of right kidney N12 Right distal ureteral calculus N20.1 Ureteral stent displacement T83.122A
[2023-07-26 08:16] LABS: Basophils # (auto) 0.05 K/uL (0.00-0.20); Basophils % (auto) 0.9 %; Eosinophils # (auto) 0.22 K/uL (0.00-0.50); Eosinophils % (auto) 3.9 %; Hematocrit (blood only) 32.2 % (37.0-47.0); Hemoglobin 10.3 g/dl (12.0-16.0); Immature Granulocytes # (auto) 0.07 K/uL (0.01-0.20); Immature Granulocytes % (auto) 1.2 %; Lymphocytes # (auto) 0.96 K/uL (1.20-3.40); Lymphocytes % (auto) 16.8 %; Mean Corpuscular Hemoglobin 28.7 pg (25.0-34.0); Mean Corpuscular Volume 89.7 fL (80.0-100.0); Mean Platelet Volume 9.4 fL (9.4-12.4); Monocytes # (auto) 0.37 K/uL (0.11-0.59); Monocytes % (auto) 6.5 %; Neutrophils # (auto) 4.04 K/uL (1.40-6.50); Neutrophils % (auto) 70.7 %; Platelet Count 353 K/uL (130-400); RDW Coefficient of Variation 13.2 % (11.5-14.5); RDW Standard Deviation 43.6 fL (36.4-46.3); Red Blood Count 3.59 M/uL (4.20-5.40); White Blood Count 5.71 K/ul (4.8-10.8)
[2023-07-26] MEDS: VENLAFAXINE HCL XR 37.5 MG CAPXR PO SCH (08:34)
[2023-07-26] MEDS: TAMSULOSIN HCL 0.4 MG CAP PO SCH (08:34)
[2023-07-26 08:42] LABS: Calcium 8.3 mg/dl (8.6-10.3); Creatinine Clr Calc Pharmacy 147.2 ml/min; Est GFR (African American) 133.1 ml/min; Est GFR (Non-African American) 114.8 ml/min; Potassium 3.4 mmol/L (3.5-5.1)
[2023-07-26] MEDS ORDERED: LIDOCAINE 2% 2 ML VIAL/AMP(20MG/ML) INFIL ONE (12:15)
[2023-07-26] MEDS ORDERED: fentaNYL citrate PF 100 MCG/2 ML VIAL ONE (12:15)
[2023-07-26] MEDS ORDERED: DEXAMETHASONE SOD INJ 4 MG/ML VIAL ONE (12:15)
[2023-07-26] MEDS ORDERED: PROPOFOL IV EMULSION 10 MG/ML 20 ML VIAL IV ONE (12:15)
[2023-07-26] MEDS ORDERED: MIDAZOLAM HCL 1 MG/ML 2ML VIAL ONE (12:15)
[2023-07-26] MEDS ORDERED: ONDANSETRON INJ 2 MG/ML 2 ML VIAL ONE (12:15)
[2023-07-26] MEDS: cefTRIAXone SODIUM 2,000 MG/50 ML BAG IV SCH (12:24)
[2023-07-26] MEDS ORDERED: ePHEDrine sulfate 50 MG/ML AMP IV PRN (14:36)
[2023-07-26] MEDS ORDERED: ATROPINE SULFATE 0.1 MG/ML 10ML SYR IV PRN (14:36)
[2023-07-26] MEDS ORDERED: PROMETHAZINE HCL 6.25 MG in SODIUM CHLORIDE 0.9% 50 ML IV PRN (14:36)
[2023-07-26] MEDS ORDERED: HYDROmorphone INJ 1 MG/ML SYRINGE IV PRN (14:36)
[2023-07-26] MEDS ORDERED: KETAMINE HCL INJ 50 MG/ML 10 ML VIAL ONE (14:56)
--- NOTE | 2023-07-26 15:22 | Operative Report ---
PG Post Operative Report Pre & Post Diagnosis Operation Date: 07/26/23 09:40 Pre: Right ureteral stone; malpositioned ureteral stent Post: right ureteral stone; malpositioned ureteral stent I identified the patient and participated in the time-out.: Yes Procedure Operation Date: 07/26/23 09:40 Cystoscopy, right ureteral stent exchange Surgeon Buddy Ferraro MD [place] none Estimated Blood Loss 0 Findings Consistent with Post-Op Diagnosis Specimens none Description of Procedure The patient was identified in the preoperative holding area, appropriate informed consents were reviewed and completed and the patient was transferred to the operative suite. Upon arrival, appropriate antibiotics and anesthesia were administered and the patient was placed in dorsal lithotomy position and prepped and draped in sterile fashion. 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 Inspection revealed a healthy appearing bladder with a stent looping throughout the bladder consistent with a migrated ureteral stent. This was still protruding from the orifice and on imaging the curl was in the proximal/mid ureter and still above the level of the stone. I grasped the distal aspect of the stent withdrew to the meatus and intubated with a sensor wire. I removed the current stent as the wire easily advanced back into the kidney. I then repositioned a 6 Kazakh by 26 cm stent with good curl in the kidney as well as the bladder. Unfortunately, I did not see a stone within the bladder nor stone come out of the ureter with removal of the initial stent. After placement of the new stent she was reversed of anesthesia and taken to the recovery room in stable condition. There were no complications. I attest to the content of the Intraoperative Record and any orders documented therein. Any exceptions are noted below.
--- NOTE | 2023-07-26 16:11 | Anesthesiology Progress Note ---
Date of Service July 26, 2023 Anesthesia Post Procedure Vital Signs Vital Signs: Temp Pulse Pulse Resp BP Pulse Ox O2 Del Method 07/26/23 15:48 36.6 C 80 18 119/85 92 Room Air 07/26/23 15:40 36.7 C 90 18 136/89 93 Room Air 07/26/23 15:30 85 17 122/87 96 Room Air 07/26/23 15:22 36.4 C L 102 H 20 136/95 98 Room Air 07/26/23 13:45 37 C 94 H 20 133/91 94 Room Air 07/26/23 07:50 Room Air 07/26/23 07:17 36.9 C 100 H 18 115/68 93 Room Air 07/26/23 06:05 37.5 C 07/26/23 05:38 37.7 C H 07/25/23 23:35 Room Air 07/25/23 21:30 36.7 C 98 H 20 104/67 97 Room Air 07/25/23 19:30 Room Air 07/25/23 18:01 106 H 18 127/87 95 Room Air Pain Intensity Right Flank: Pain Intensity: 1 Transfer of Care Handoff Completed per policy Notes Mental Status: alert / awake / arousable and participated in evaluation Patient Amnestic to Procedure: Yes Nausea / Vomiting: adequately controlled Pain: adequately controlled Airway Patency, RR, SpO2: stable & adequate BP & HR: stable & adequate Hydration State: stable & adequate Anesthetic Complications: no major complications apparent and Pt Satisfied with anesthetic care
--- NOTE | 2023-07-26 16:12 | Hospitalist Progress Note ---
Date of Service July 26, 2023 Assessment & Plan (1) Parainfluenza virus pneumonia: Plan: Most likely cause of her fever at home as occurred at same time of shortness of breath and cough Symptomatic treatment only - guaifenesin/dextromethorphan for cough Recommend private room but not only standard precautions required Ordered Sudafed (2) Pyelonephritis of right kidney: Plan: Suspect just residual CT findings from prior but given stent is not in pelvis of kidney possible (but much less likely) this is driving her fever No CVA tenderness on exam Switch Augmentin to IV ceftriaxone pending blood cultures and urology management of stent (3) Ureteral stent displacement: Plan: Urology spoke to the patient and decided on stent exchange. This is going to take place today. Plan VTE Prophylaxis - low risk Diet - regular Disposition - observation to med/surg Admission and Anticipated Discharge Date Admission Date: July 25, 2023 Subjective Patient feels well. She just has some nasal congestion and head cold. Review of Systems Review of Systems: All systems reviewed & are unremarkable except as noted in Subjective Physical Exam Physical Exam: General: Awake, conversant Heart: S1, S2/regular rate and rhythm, no murmur rubs or gallops Lungs: Clear to auscultation bilaterally. Normal effort Abdomen: Soft/nontender/nondistended. No hepatosplenomegaly Extremities: No clubbing/cyanosis. No edema Behavior: Appropriate, cooperative Results & Data Results & Data Vital Signs (Past 12 Hours) Vital Signs Temp Pulse Pulse Resp BP Pulse Ox O2 Del Method 07/26/23 15:48 36.6 C 80 18 119/85 92 Room Air 07/26/23 15:40 36.7 C 90 18 136/89 93 Room Air 07/26/23 15:30 85 17 122/87 96 Room Air 07/26/23 15:22 36.4 C L 102 H 20 136/95 98 Room Air 07/26/23 13:45 37 C 94 H 20 133/91 94 Room Air 07/26/23 07:50 Room Air 07/26/23 07:17 36.9 C 100 H 18 115/68 93 Room Air 07/26/23 06:05 37.5 C 07/26/23 05:38 37.7 C H Laboratory Results Abnormal lab results 07/26/23 Range/Units 07:32 RBC 3.59 L (4.20-5.40) M/uL Hgb 10.3 L (12.0-16.0) g/dl Hct 32.2 L (37.0-47.0) % Lymph # (Auto) 0.96 L (1.20-3.40) K/uL Potassium 3.4 L (3.5-5.1) mmol/L Calcium 8.3 L (8.6-10.3) mg/dl PG Care Time/CCT Total # of Minutes Spent Total Time Spent with Patient: Total time spent is greater than 50% in coordination of care (as documented) at patient's floor/unit and/or counseling patient: Coding Level of Care Code 03722 SUB INP/OBS CARE 235MIN Diagnoses Parainfluenza virus pneumonia J12.2 Pyelonephritis of right kidney N12 Ureteral stent displacement T83.122A
[2023-07-26] MEDS: FLUCONAZOLE 50 MG TAB PO ONE (16:33)
--- NOTE | 2023-07-26 16:43 | Fluoroscopy Report ---
[facility] CLINICAL HISTORY: STENT EXCHANGE COMPARISON STUDY: None. FLUOROSCOPY TIME: 4 seconds FLUOROSCOPY IMAGES: 3 Ka,r: 1.2 mGy FINDINGS: A guidewire noted within the right renal collecting system followed by placement of a right ureteral stent. Only the proximal portion of the stent is identified and appears in good position. IMPRESSION: Fluoroscopic assistance as above ACT 112: Negative or not required by law. Electronically signed by: Jorge Luis Duenas M.D. 07/26/2023 4:41 PM
[2023-07-27] MEDS: PSEUDOEPHEDRINE HCL 30 MG TAB PO PRN (08:32)
[2023-07-27] MEDS ORDERED: ALBUT/IPRATROP 3MG/0.5MG NEB 3 ML VIAL NEB PRN (08:38)
--- NOTE | 2023-07-27 08:46 | Urology Progress Note ---
Date of Service July 27, 2023 Assessment & Plan (1) Pyelonephritis of right kidney: Plan: Follow-up of right pyelonephritis, displaced right ureteral stent Pt POD #1 s/p cystoscopy and right ureteral stent exchange She is afebrile and hemodynamically stable No new labs at time of visit today Urine culture prelim showing no growth Blood cultures no growth x 24 hours Prior UC with pansensitive E. coli She remains on IV ceftriaxone Patient okay for discharge from perspective when medically stable Recommend discharge with course of antibiotics for complicated UTI Consider ID consultation for antibiotic recommendations for discharge Keep outpatient urology follow-up as scheduled to set up definitive stone treatment after acute infection has been treated will sign off, please contact our service with any additional questions or concerns Admission and Anticipated Discharge Date Admission Date: July 25, 2023 Subjective Patient seen and examined at bedside this morning No acute issues overnight She continues with cough Reports minimal bother from left stent Voiding spontaneously, hematuria clearing postprocedure Denies fever or chills Review of Systems Constitutional: as per Subjective / HPI Genitourinary: as per Subjective / HPI Physical Exam Constitutional: well developed and well nourished; no acute distress Respiratory: normal respiratory effort; no respiratory distress and no labored breathing Gastrointestinal (Abdomen): Inspection/Auscultation: abdomen normal to inspection Musculoskeletal: Head/Neck/Chest: normocephalic Neurologic: moves all extremities and awake Psychiatric: Orientation: alert and oriented x 3 Results & Data Vital Signs (Past 12 Hours) Vital Signs Temp Pulse Resp BP Pulse Ox O2 Del Method 07/27/23 07:32 Room Air 07/27/23 07:30 36.7 C 90 16 130/80 96 Room Air 07/27/23 03:51 36.9 C 85 16 132/85 96 Room Air 07/26/23 23:33 36.7 C 72 16 120/78 96 Room Air PG Care Time/CCT Total # of Minutes Spent Total Time Spent with Patient: Total time spent is greater than 50% in coordination of care (as documented) at patient's floor/unit and/or counseling patient: Coding Level of Care Code 84438 SUB INP/OBS CARE 04/14MIN Diagnoses Pyelonephritis of right kidney N12
[2023-07-27] MEDS: POTASSIUM CHLORIDE CRTAB 20 MEQ TABCR PO STA (09:17)
--- NOTE | 2023-07-27 10:36 | Discharge Summary ---
Date of Service July 27, 2023 Admission HPI Per Admitting Provider Velma York is a 38 year old female who presents to the ER with shortness of breath, wheezing, nonproductive cough. She was recently hospitalized for right-sided pyelonephritis with a small right renal abscess/phlegmon and obstructing right ureteral stone - treated with ureteral stent and she remains on Augmentin on discharge for pansensitive E. coli. She was discharged 4 days ago. Symptoms started 24 -36 hours after discharge with fever 100-101 degrees Farenheit, shortness of breath and non-productive cough. She has no asthma or COPD. Currently O2 sats > 94% on room air. No chest pain. Admission Exam Per Admitting Provider Constitutional: WD/WN, vitals as above Eyes: + anicteric sclerae; normal pupil size ENMT: external ear and nose normal, oropharynx normal Respiratory: normal respiratory effort and + cough; no respiratory distress Auscultation: + wheezes (mild expiratory); breath sounds present, no diminished lung sounds, no crackles, no rales and no rhonchi Cardiovascular: Rate/Rhythm: regular rate and regular rhythm Heart Sounds: no murmur Extremities: normal capillary refill; no calf tenderness and no pedal edema Gastrointestinal (Abdomen): normal bowel sounds, soft, nontender, no hepatosplenomegaly Musculoskeletal: no cyanosis or clubbing, extremities motor strength 5/5 Skin: no rashes, warm and dry Neurologic: moves all extremities and awake; not confused Psychiatric: A+Ox3, euthymic affect Genitourinary: no CVA tenderness Principal Diagnosis Parainfluenza virus infection Malpositioned right ureteral stent - Acute complicated pylenephritis Discharge Exam General: Awake, conversant Heart: S1, S2/regular rate and rhythm, no murmur rubs or gallops Lungs: Clear to auscultation bilaterally. Normal effort Abdomen: Soft/nontender/nondistended. No hepatosplenomegaly Extremities: No clubbing/cyanosis. No edema Behavior: Appropriate, cooperative Discharge Data Allergies Allergy/AdvReac Type Severity Reaction Status Date / Time No Known Allergies Allergy Verified 07/25/23 09:59 Consultations 07/25/23 12:14 ED Decision to Admit Stat Procedures Performed Operation Date: 07/26/23 09:40 Actual Procedures p Cystoscopy Right Ureteral Stent Exchange(Right) - Buddy Ferraro MD Ordered Studies 07/25/23 08:41 CT Abd and Pelvis [CT abd pelvis IV con only] Stat CT angio chest PE protocol Stat 07/26/23 [facility] Routine Hospital Course (1) Parainfluenza virus pneumonia: Most likely cause of her fever at home as occurred at same time of shortness of breath and cough Symptomatic treatment only (2) Pyelonephritis of right kidney: Suspect just residual CT findings from prior but given stent is not in pelvis of kidney possible (but much less likely) this is driving her fever No CVA tenderness on exam Decided to switch from p.o. Augmentin to p.o. Bactrim (better urinary tract penetration) for 7 days since ureteral stent exchange as the patient has a phlegmon that is not drainable (3) Ureteral stent displacement: Ureteral stent was exchanged on 07/25. Patient is cleared for discharge. She will follow-up with urology. Appointment scheduled per urology. Plan Discharge to home Total Time Total Time Spent Total Time Spent (In Minutes): 35 Discharge Plan Discharge Items Patient Disposition: Home - Self-Care Reason For Visit: PARAOMFLUENZAVIRUS PNA, PYELONEPHRITIS Discharge Diagnosis: Parainfluenza virus infection Malpositioned right ureteral stent - Acute complicated pylenephritis Activity: Resume your previous activity Non-emergency contact: Primary Care Provider Call non-emergency contact if: you have any medication questions and your symptoms worsen Follow-up/Referrals: Buddy Ferraro MD [Physician] - (JEANNE, [facility]AGE ADJUSTER WILL CALL PATIENT TO SCHEDULE A HOSPITAL FOLLOW UP.) Justin Aranda MD [Primary Care Provider] - 08/09/23 2:00 pm (PCP IS OUT OF THE OFFICE NEXT WEEK; THEREFORE, APPOINTMENT WAS MADE FOR THE FOLLOWING WEEK.) Diet: Regular Addtl Attending Provider Instructions: Advised to follow-up with PCP in 1 week Advised to follow-up with urology in 1 week Pending Studies at Discharge: No Stand-Alone Forms: [facility] [employer] Medications and DC Order Prescriptions: New sulfamethoxazole-trimethoprim [Bactrim DS] 800-160 mg tablet 1 tab PO BID 6 Days Qty: 12 0RF Continued lorazepam [Ativan] 1 mg Tablet 1 mg PO BID PRN (Reason: Anxiety) venlafaxine 37.5 mg capsule,extended release 24hr 37.5 mg PO DAILY tamsulosin 0.4 mg capsule 0.4 mg PO DAILY acetaminophen 325 mg Tablet 650 mg PO Q4H PRNQty: 0 0RF Discontinued amoxicillin-pot clavulanate 875-125 mg tablet 1 tab PO Q12H Qty: 28 0RF Rx Instructions: STARTED 5/2 FOR 14 DAYS Discharge Orders: Discharge Order (Routine); Ordered 07/27/23 Ordered By: Ann Marie Jean/Other Patient Handouts: Treating Pneumonia, Identifying Kidney Stones, Preventing Kidney Stones Admission Data Admit Date/Time: 07/25/23 13:25 Attending Provider: Ann Marie Mckinney Admit Provider: Wilber Hollis Primary Care Provider: Justin Aranda Other Providers: Wilber Hollis Other Interventions: Discharge Summary Assessment (RN) Last Done: 07/27/23 10:48 Coding Level of Care Code 35594 INP/OBS DISCH >30 MIN Diagnoses Parainfluenza virus pneumonia J12.2 Pyelonephritis of right kidney N12 Ureteral stent displacement T83.122A
== END 2023-07-27 12:07 | disposition home or self-care (01) ==
LOC: ED 08:23 → 3W 08:23 → SUATTDRO 13:25 → 3W 14:30